=== PATIENT | female | born 1935 | race Caucasian/White ===

== ENCOUNTER 2018-04-15 08:56 | Outpatient (CLI) ==
--- NOTE | 2018-04-15 09:57 | US ---
EXAM: Bilateral carotid artery Doppler History: Dizziness. Comparison: Carotid Doppler 03/30/2014 Technique: Multiple sonographic images through the bilateral internal carotid arteries were obtained . Color duplex Doppler was used to interrogate vascular flow. Findings: The right ICA peak systolic velocity is within normal limits measuring 90 cm/sec. The right ICA/cca PSV ratio is moderately elevated at 2.0. The right vertebral artery is patent and demonstrates antegr sonia flow. There is moderate plaque buildup within the right carotid bulb and proximal right internal carotid artery. The left ICA peak systolic velocity is within normal limits measuring 80 cm/sec. The left ICA/cca PS V ratio is normal at 1.1. The left vertebral artery is patent and demonstrates antegrade flow. Felton scale images demonstrate moderate plaque buildup within the left carotid bulb and proximal left inte rnal carotid artery. Impression: The peak systolic velocities of the bilateral internal carotid arteries indicate no signi ficant hemodynamic stenosis. However, felton scale findings indicate more significant plaque buildup. Recommend clarification with CTA of the neck.
== END 2018-04-15 08:57 | disposition home or self-care (01) ==
LOC: RAD 08:56
PROVIDERS: ATTEND Internal Medicine
DX: R42 Dizziness and giddiness (principal)

== ENCOUNTER 2018-04-22 07:48 | Outpatient (CLI) ==
--- NOTE | 2018-04-22 10:34 | CT ---
EXAM: CTA of the neck with and without contrast History: Carotid stenosis. Comparison: Carotid Doppler 04/15/2018 Technique: Multiplanar CT images through the neck were obtained with and without the administration o f IV contrast. MIP images and 3-D reconstructions were also acquired. Findings: Emphysema seen within the upper lungs. The visualized paranasal sinuses and mastoid air c ells are clear in general. Epiglottis is not thickened. Moderate degenerative disc disease within t he lower cervical spine. Parotid glands and submandibular glands are not inflamed. Orbits are intact . The visualized intracranial contents demonstrate no acute findings. The left vertebral artery is smaller than the right which is most likely a developmental variant. No aneurysms or dissections frederic ntified. The bilateral common carotid arteries are patent without significant disease. There is mod erate atherosclerotic plaque buildup at the left carotid bulb and mild to moderate atherosclerotic pl aque buildup at the right carotid bulb. There is about 50% narrowing of the proximal left internal c arotid artery and 40% narrowing of the proximal right internal carotid artery. Impression: 1. 50% narrowing of the proximal left internal carotid artery with calcific plaque. 2. 40% narrowing of the proximal right internal carotid artery with calcific plaque.
== END 2018-04-22 07:49 | disposition home or self-care (01) ==
LOC: RAD 07:48
PROVIDERS: ATTEND Internal Medicine
DX: I65.23 Occlusion and stenosis of bilateral carotid arteries (principal)
CPT/HCPCS: 36415; 82565

== ENCOUNTER 2020-03-10 06:36 | Inpatient (IN) ==
[2020-03-10] MEDS ORDERED: TYLENOL PO PRN ×3 (07:20→10:33)
[2020-03-10] MEDS ORDERED: VENTOLIN HFA (PER PUFF-WITH SPACER) IH STA (07:20)
[2020-03-10] MEDS ORDERED: SODIUM CHLORIDE 1,000 ML IV ONE (07:24)
[2020-03-10 07:34] LABS: ABG BASE EXCESS -3 (-2.0-2.0); ABG HCO3 20.7 (22.0-26.0); ABG PCO2 26.8 mmHg (35-45); ABG PH 7.495 (7.35-7.45); ABG TCO2 21 (22.0-28.0)
--- NOTE | 2020-03-10 07:49 | ED.PDOC ---
General ED Provider: Dr. LADI WALDEN Stated Complaint: CC: Short of breath HPI: has been ill for a few days and was tested for Covid several days ago along with her 2 sisters whom she lives with. over the past 12 hrs had found it more difficult to breath and feels SOB. Feels cold, but denies fever, chills or sweats. Has a cough productive of yellow sputum. Gets worse at times-currently not coughting Time Seen by Physician: 07:30 Mode of Arrival: Walk-In Information Source: Patient Exam Limitations: Clinical condition Primary Care Provider: ZITA WORLEY Nursing and Triage Documentation Reviewed and Agree: Yes Does patient meet sepsis criteria?: No System Inflammatory Response Syndrome: Not Applicable Sepsis Protocol: For patient's 13 years and over: Temp is 96.8 and below OR 101 and greater Pulse >90 BPM Resp >20/minute Acutely Altered Mental Status Are patient's symptoms suggestive of a new infection, such as: -Pneumonia -Skin, Soft Tissue -Endocarditis -UTI -Bone, Joint Infection -Implantable Device -Acute Abdominal Infection -Wound Infection -Meningitis -Blood Stream Catheter Infection -Unknown Respiratory Complaint Exam Shortness of Air Complaint/Exam Onset/Duration: 1-2 days ago Symptoms Are: Still present Timing: Constant Initial Severity: Mild Current Severity: Mild Character: Reports Dyspnea at rest and Dyspnea on exertion Aggravating: Reports Recumbent position Alleviating: Reports Oxygen and Upright position Associated Signs and Symptoms: Reports Chills and Nasal congestion; Denies Cough, Wheezing, Chest pain with cough, Chest pain, Fever, Diaphoresis, Dizziness, Calf pain, Calf swelling, Edema, Rapid breathing, Labored breathing and Decreased intake Related History: Denies Similar episode, Allergic reaction, Recent trauma and Obesity History of Healthcare-Acquired Pneumonia: No Pulmonary Embolism Risk Factors: Reports None Cardiac Risk Factors: Reports None Pseudomonas Risk Factors: Reports None Tuberculosis Risk Factors: Reports None Home Oxygen Use: No Recent Stress Test: No Recent Echo/LV Function: No Respiratory Distress: None Stridor Present: No Tracheal Deviation: No Subcutaneous Emphysema: No Accessory Muscle Use: No Retractions: Not Present Diminished Breath Sounds: Yes Unable to Speak Full Sentences: No Fatigue: Yes Leg Swelling: No Laz's Sign Present: No Grunting Respirations: No Kussmaul Respirations: No Differential Diagnoses: Pneumonia and SARS Review of Systems Review Of Systems Constitutional: Reports Chills and Loss of appetite Eyes: Reports No symptoms Ears, Nose, Mouth, Throat: Reports No symptoms Respiratory: Reports No symptoms Cardiac: Reports No symptoms GI: Reports Poor appetite : Reports No symptoms Musculoskeletal: Reports No symptoms Skin: Reports No symptoms Neurological: Reports No symptoms Hematologic/Lymphatic: Reports No symptoms All Other Systems: Reviewed and Negative [facility] Medical History (Updated 03/10/20 @ 11:18 by KATERINE ORO, RN) Afib COVID-19 Dementia Diabetes Hypertension Sensorineural hearing loss (SNHL) of both ears Family History (Updated 03/10/20 @ 11:19 by KATERINE ORO, RN) Other Unknown family medical history Social History (Updated 03/10/20 @ 11:19 by KATERINE ORO RN) Smoking and tobacco status: Former smoker Substance use type: does not use Seatbelt use: always Drives intoxicated or rides with intoxicated 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 Physical Exam Physical Exam Appearance: Reports Ill-appearing and Thin Ill-appearing: Mild Pain Distress: None Eyes: Reports VIRIDIANA, EOMI, Conjunctiva clear and Right pupil size (VIRIDIANA-A and EOM-I) ENT: Reports Ears normal and Nose normal Neck: Supple Respiratory: Reports Airway patent, Breath sounds clear and Breath sounds equal Cardiovascular: Reports RRR, Pulses normal and No rub GI/: Reports Soft, Nontender, No masses, Bowel sounds normal and No Organomegaly Musculoskeletal: Reports Normal strength, ROM intact and No edema Skin: Reports Warm, Dry and Normal color Neurological: Reports Sensation intact, Motor intact, Reflexes intact, Cranial nerves intact, Alert and Oriented Psychiatric: Reports Affect appropriate and Mood appropriate Interpretation Radiology Interpretation Radiology Interpretation By: Radiologist Exam Interpreted: Portable CXR Xray Comments: Patchy airspace opacities are seen throughout the lung parenchyma Physician Notification Case Discussed Physician Notified: Dr Worley-Discussed case/leaving town/agrees for hospitalist admission/isDNR Time of Notification: 09:15 Critical Care Note Critical Care Note Total Time (mins): 60 Course Course Hematology/Chemistry: 03/10/20 07:45 03/10/20 07:45 Orders, Labs, Meds: Lab Review 03/10/20 03/10/20 03/10/20 07:19 07:45 07:45 WBC 7.62 RBC 3.75 L Hgb 11.0 L Hct 32.3 L MCV 86.1 MCH 29.3 MCHC 34.1 RDW Coeff of Minda 12.7 Plt Count 196 Immature Gran % (Auto) 0.7 Neut % (Auto) 87.6 H Lymph % (Auto) 8.0 L Becker % (Auto) 3.4 Eos % (Auto) 0.0 Baso % (Auto) 0.3 Neut # (Auto) 6.7 Lymph # (Auto) 0.6 Becker # (Auto) 0.3 L Eos # (Auto) 0.0 Baso # (Auto) 0.0 Immature Gran # (Auto) 0.1 Puncture Site R brachial O2 Saturation 88.0 L ABG pH 7.495 H ABG pCO2 26.8 L ABG pO2 48.0 L* ABG HCO3 20.7 L ABG Total CO2 21 L ABG Base Excess -3 L Amandeep Test + O2 Delivery Device Oxygen Liter Flow FiO2 % 21.0 Sodium 129.3 L Potassium 3.51 Chloride 95.9 L Carbon Dioxide 25.1 Anion Gap 11.81 BUN 19.3 H Creatinine 0.67 Estimated GFR (MDRD) 84.00 BUN/Creatinine Ratio 28.80 Glucose 132.3 H Lactic Acid Calcium 8.90 Magnesium 1.98 Total Bilirubin 0.77 AST 47.6 H ALT 19.1 Alkaline Phosphatase 76.7 Troponin I 0.025 Total Protein 7.22 Albumin 3.77 Globulin 3.45 Albumin/Globulin Ratio 1.09 Procalcitonin 03/10/20 03/10/20 03/10/20 07:45 07:45 09:33 WBC RBC Hgb Hct MCV MCH MCHC RDW Coeff of Minda Plt Count Immature Gran % (Auto) Neut % (Auto) Lymph % (Auto) Becker % (Auto) Eos % (Auto) Baso % (Auto) Neut # (Auto) Lymph # (Auto) Becker # (Auto) Eos # (Auto) Baso # (Auto) Immature Gran # (Auto) Puncture Site R rad O2 Saturation 92.0 L ABG pH 7.445 ABG pCO2 30.7 L ABG pO2 59.0 L* ABG HCO3 21.1 L ABG Total CO2 22 ABG Base Excess -3 L Amandeep Test + O2 Delivery Device Nc Oxygen Liter Flow 2.00 FiO2 % 28.0 Sodium Potassium Chloride Carbon Dioxide Anion Gap BUN Creatinine Estimated GFR (MDRD) BUN/Creatinine Ratio Glucose Lactic Acid 0.82 Calcium Magnesium Total Bilirubin AST ALT Alkaline Phosphatase Troponin I Total Protein Albumin Globulin Albumin/Globulin Ratio Procalcitonin 0.20 Orders Category Date Time Status ABG DRAW REQUEST Stat CARDIO 03/10/20 07:19 Completed ABG DRAW REQUEST Stat CARDIO 03/10/20 09:32 Completed EKG-(ED ONLY) Stat CARDIO 03/10/20 07:19 Completed METERED DOSE INHALATION Routine CARDIO 03/10/20 07:23 Completed OXYGEN Routine CARDIO 03/10/20 07:19 Completed ABG Stat LAB 03/10/20 07:19 Completed ABG Stat LAB 03/10/20 09:33 Completed BLOOD CULTURE (ED ONLY) Stat LAB 03/10/20 07:45 Received CBC W/ AUTO DIFF Stat LAB 03/10/20 07:45 Completed CMP [COMPREHENSIVE METABOLIC PANEL] Stat LAB 03/10/20 07:45 Completed LACTIC ACID Stat LAB 03/10/20 07:45 Completed MAGNESIUM Stat LAB 03/10/20 07:45 Completed PROCALCITONIN Stat LAB 03/10/20 07:45 Completed TROPONIN I Stat LAB 03/10/20 07:45 Completed UA [URINALYSIS C & S IF INDICATED] Stat LAB 03/10/20 07:21 Uncollected Acetaminophen [Tylenol] MEDS 03/10/20 07:20 Discontinued 650 mg PO Q4H PRN Albuterol Inhaler(with Spacer) [Ventolin Hfa (Per Puff- MEDS 03/10/20 07:20 Discontinued with Spacer)] 2 puff IH ONCE STA Dexamethasone 4 mg/ml Inj [Decadron 4 mg/ml Sdv] MEDS 03/10/20 09:06 Discontinued 4 mg IVP ONCE STA Sodium Chloride 0.9% [Sodium Chloride] 1,000 ml MEDS 03/10/20 07:24 Active IV ONCE CHEST, 1V AP ONLY Stat RADS 03/10/20 07:20 Completed Medications Generic Name Dose Route Start Last Admin Trade Name Freq PRN Reason Stop Dose Admin Acetaminophen 650 mg 03/10/20 10:14 Acetaminophen 325 Mg Tablet PO Q4H PRN pain or temp >101 deg Albuterol Sulfate 2 puff 03/10/20 10:33 Albuterol Sulfate (Ventolin Hfa) 18 Gm 1 Puff With Spacer IH Q6H PRN Wheezing Azithromycin 500 mg 03/10/20 13:00 Azithromycin 250 Mg Tablet PO 03/12/20 10:00 DAILY [facility] Bisoprolol Fumarate/HCTZ 0.5 tab 03/11/20 09:00 Bisoprolol Fumarate/Hctz 5/6.25 Mg Tab PO DAILY AMITA Dexamethasone Sodium Phosphate 4 mg 03/11/20 09:00 Dexamethasone Sod Phos 4 Mg/Ml Inj IVP 03/14/20 10:00 DAILY [facility]ITA Donepezil HCl 5 mg 03/11/20 09:00 Donepezil Hcl 10 Mg Tablet PO DAILY [facility] Sodium Chloride 1,000 mls @ 125 mls/hr 03/10/20 07:24 03/10/20 07:53 Sodium Chloride IV 03/10/20 15:23 125 mls/hr ONCE ONE Administration REMDESIVIR (INVESTIGATIONAL) 250 mls @ 125 mls/hr 03/10/20 10:22 200 mg/ Sodium Chloride IV 03/10/20 12:21 ONCE STA Levothyroxine Sodium 75 mcg 03/11/20 06:30 Levothyroxine Sodium 75 Mcg Tablet PO QDAC [facility] Lorazepam 1 mg 03/10/20 10:26 Lorazepam 1 Mg Tablet PO DAILY PRN ANXIETY Memantine 10 mg 03/10/20 17:00 Memantine Hcl 10 Mg Tablet PO QPM [facility] Minoxidil 5 mg 03/10/20 21:00 Minoxidil 2.5 Mg Tablet PO BID [facility] Nifedipine 60 mg 03/11/20 09:00 Nifedipine 30 Mg Tab.Er.24 PO DAILY [facility] Ondansetron HCl 4 mg 03/10/20 10:14 Ondansetron Hcl/Pf 4 Mg/2 Ml Sdv IVP Q6H PRN Nausea / Vomiting Discontinued Medications Generic Name Dose Route Start Last Admin Trade Name Freq PRN Reason Stop Dose Admin Acetaminophen 650 mg 03/10/20 07:20 03/10/20 07:53 Acetaminophen 325 Mg Tablet PO 650 mg Q4H PRN Administration Tenp > 101 deg Albuterol Sulfate 2 puff 03/10/20 07:20 03/10/20 07:51 Albuterol Sulfate (Ventolin Hfa) 18 Gm 1 Puff With Spacer IH 03/10/20 07:21 2 puff ONCE STA Administration Dexamethasone Sodium Phosphate 4 mg 03/10/20 09:06 03/10/20 09:18 Dexamethasone Sod Phos 4 Mg/Ml Inj IVP 09/24/20 09:07 4 mg ONCE STA Administration Vital Signs: Temp Pulse Resp BP Pulse Ox 03/10/20 09:35 92 L 03/10/20 07:19 99.5 F 90 24 149/63 H 82 L Discharge Plan Discharge Patient Disposition: TSF SHORT-TRM HOSP Discharge Problem: Pneumonia due to 2019 novel coronavirus, Acute hyponatremia, Atrial fibrillation, chronic ED Provider: LADI WALDEN Condition: Serious Additional Comments Additional Comments: 0941: Is doing well at present time. After discussion with Dr Worley concurs with Hospitalist admission for treatment. Discussed case with her daughter HERSON advised of treatment plan.
[2020-03-10 08:06] LABS: BASOPHILS % (AUTO) 0.3 % (0.0-3.0); HEMATOCRIT 32.3 % (37.0-47.0); IMMATURE GRANULOCYTE # (AUTO) 0.1 (0.0-1.0); IMMATURE GRANULOCYTE % (AUTO) 0.7 % (0.0-5.0); LYMPHOCYTES # (AUTO) 0.6 K/uL (0.60-3.4); MEAN CORPUSCULAR HEMOGLOBIN 29.3 pg (27.0-31.0); MEAN CORPUSCULAR HGB CONC 34.1 (31.8-35.4); MEAN CORPUSCULAR VOLUME 86.1 fl (81.0-99.0); MONOCYTES # (AUTO) 0.3 K/uL (0.4-2.0); MONOCYTES % (AUTO) 3.4 (0-10); NEUTROPHILS # (AUTO) 6.7 K/ul (2.0-6.9); NEUTROPHILS % (AUTO) 87.6 % (42.2-75.2); PLATELET COUNT 196 10^3/uL (140-440); RDW COEFFICIENT OF VARIATION 12.7 % (11.6-14.8); RED BLOOD COUNT 3.75 10^6/ul (4.20-5.40); WHITE BLOOD COUNT 7.62 K/ul (4.6-10.2)
[2020-03-10 08:07] LABS: ALANINE AMINOTRANSFERASE 19.1 U/L (0-35); ALBUMIN 3.77 g/dL (3.5-5.0); ALKALINE PHOSPHATASE 76.7 U/L (53-141); ASPARTATE AMINO TRANSFERASE 47.6 U/L (14-36); BILIRUBIN,TOTAL 0.77 mg/dL (0.2-1.3); BLOOD UREA NITROGEN 19.3 mg/dL (7-17); CALCIUM 8.9 mg/dL (8.4-10.2); CARBON DIOXIDE 25.1 mmol/L (22-30.0); CHLORIDE 95.9 mmol/L (98-107); CREATININE 0.67 mg/dL (0.60-1.30); GLUCOSE 132.3 mg/dL (74-106); MAGNESIUM 1.98 mg/dL (1.6-2.3); POTASSIUM 3.51 mmol/L (3.5-5.1); SODIUM 129.3 mmol/L (134.5-145); TOTAL PROTEIN 7.22 g/dL (6.3-8.2)
[2020-03-10 08:17] LABS: TROPONIN I 0.025 ng/ml (0.0000-0.120)
--- NOTE | 2020-03-10 08:33 | DI ---
Exam: Single view of the chest. Comparison: None available. Reason for exam: Short of breath. COVID FINDINGS: Patchy airspace opacities are seen throughout the lung parenchyma. There are old healed r ight-sided rib fractures. Cardiac silhouette appears prominent in size. No pneumothorax or effusion . Impression: Diffuse ground-glass opacities can be seen with inflammation, pneumonia, and pulmonary edema. Follow -up imaging is recommended.
[2020-03-10] MEDS ORDERED: DECADRON 4 MG/ML SDV IVP STA (09:06)
[2020-03-10 09:34] LABS: ABG BASE EXCESS -3 (-2.0-2.0); ABG HCO3 21.1 (22.0-26.0); ABG PCO2 30.7 mmHg (35-45); ABG PH 7.445 (7.35-7.45); ABG TCO2 22 (22.0-28.0)
[2020-03-10] MEDS ORDERED: ZOFRAN 4 MG/2 ML IVP PRN (10:14)
[2020-03-10] MEDS ORDERED: [UNRECOGNIZED DRUG - REMARK] IV STA ×2 (10:22→15:48)
[2020-03-10] MEDS ORDERED: ATIVAN PO PRN (10:26)
[2020-03-10] MEDS ORDERED: VENTOLIN HFA (PER PUFF-WITH SPACER) IH PRN (10:33)
[2020-03-10 11:27] VITALS: BMI 22.4
[2020-03-10] MEDS ORDERED: ZITHROMAX PO SCH (13:00)
[2020-03-10] MEDS: NAMENDA PO SCH (16:26)
[2020-03-10 17:00] LABS: BILIRUBIN,URINE Negative (NEGATIVE); CLARITY,URINE Clear (CLEAR); COLOR,URINE Yellow (YELLOW); GLUCOSE, URINE (UA) Trace (NEGATIVE); KETONES,URINE Negative (NEGATIVE); LEUKOCYTE ESTERASE ,URINE Trace (NEGATIVE); NITRITE,URINE Negative (NEGATIVE); PH,URINE 6.5 (5-9); PROTEIN,URINE Trace (NEGATIVE); URINE, BLOOD Trace-intact (NEGATIVE); UROBILINOGEN,URINE 0.2 (0.2)
[2020-03-10] MEDS: ZINC-220 PO SCH (17:03)
[2020-03-10 17:05] LABS: SQUAMOUS EPITHELIAL CELL,UR 0-2 (0-5); URINE RBC, MICROSCOPIC 0-2 (0-2); URINE WBC, MICROSCOPIC 0-2 (0-2)
[2020-03-10] MEDS: ROCEPHIN 1 GM/50 ML D5W 1 GM/50 ML BAG IV SCH (18:46)
[2020-03-10] MEDS: MINOXIDIL PO SCH (20:26)
[2020-03-10] MEDS: PRAVACHOL PO SCH (20:26)
[2020-03-11] MEDS: SYNTHROID PO SCH (05:32)
[2020-03-11] MEDS: TESSALON PERLES PO PRN ×2 (05:33→17:05)
[2020-03-11 06:13] LABS: BASOPHILS % (AUTO) 0.2 % (0.0-3.0); HEMATOCRIT 36.9 % (37.0-47.0); HEMOGLOBIN 12.4 g/dl (12.0-16.0); IMMATURE GRANULOCYTE # (AUTO) 0.1 (0.0-1.0); IMMATURE GRANULOCYTE % (AUTO) 0.7 % (0.0-5.0); LYMPHOCYTES # (AUTO) 1.5 K/uL (0.60-3.4); LYMPHOCYTES % (AUTO) 16.7 (10.0-50.0); MEAN CORPUSCULAR HGB CONC 33.6 (31.8-35.4); MEAN CORPUSCULAR VOLUME 86.2 fl (81.0-99.0); MONOCYTES # (AUTO) 0.4 K/uL (0.4-2.0); MONOCYTES % (AUTO) 5.1 (0-10); NEUTROPHILS # (AUTO) 6.7 K/ul (2.0-6.9); NEUTROPHILS % (AUTO) 77.3 % (42.2-75.2); PLATELET COUNT 287 10^3/uL (140-440); RDW COEFFICIENT OF VARIATION 12.9 % (11.6-14.8); RED BLOOD COUNT 4.28 10^6/ul (4.20-5.40); WHITE BLOOD COUNT 8.67 K/ul (4.6-10.2)
[2020-03-11 06:26] LABS: ALBUMIN 4.09 g/dL (3.5-5.0); ALKALINE PHOSPHATASE 89.4 U/L (53-141); ASPARTATE AMINO TRANSFERASE 48.8 U/L (14-36); BILIRUBIN,TOTAL 0.85 mg/dL (0.2-1.3); BLOOD UREA NITROGEN 14.3 mg/dL (7-17); CALCIUM 9.4 mg/dL (8.4-10.2); CARBON DIOXIDE 26.5 mmol/L (22-30.0); CHLORIDE 100.8 mmol/L (98-107); CREATININE 0.51 mg/dL (0.60-1.30); GLUCOSE 115.5 mg/dL (74-106); POTASSIUM 3.58 mmol/L (3.5-5.1); SODIUM 135.8 mmol/L (134.5-145); TOTAL PROTEIN 8.01 g/dL (6.3-8.2)
[2020-03-11] MEDS: ZIAC 5-6.25 MG PO SCH (08:43)
[2020-03-11] MEDS: DECADRON 4 MG/ML SDV IVP SCH (08:43)
[2020-03-11] MEDS: [UNRECOGNIZED DRUG - REMARK] IV SCH (08:43)
[2020-03-11] MEDS: PROCARDIA XL PO SCH (08:43)
[2020-03-11] MEDS: ARICEPT PO SCH (08:44)
[2020-03-11] MEDS: ZINC-220 PO SCH (08:44)
[2020-03-11] MEDS: MINOXIDIL PO SCH ×2 (08:45→20:52)
[2020-03-11] MEDS ORDERED: DECADRON 4 MG/ML SDV IVP SCH (09:00)
[2020-03-11] MEDS: ROCEPHIN 1 GM/50 ML D5W 1 GM/50 ML BAG IV SCH (10:07)
--- NOTE | 2020-03-11 15:41 | PCM.PROG ---
Objective: Vitals: T=98.9 F, P=63, R=16, IF=843/60, SPO2=94 HEENT: oropharynx moist Neck: supple Lungs: no resp distress, breath sounds bilaterally, diminished bases CVS: 66, irregular Extremities: normal ROM Neurological: mildly demented, no focal deficit Skin: no lesions or breakdowns noted Lab/Tests/Diagnostic Imaging: monitor controlled a fib, short runs of bigeminy noted ASSESSMENT; COVID-19 PNEUMONIA ATRIAL FIBRILLATION, CONTROLLED HYPERTENSION, CONTROLLED, MILD DEMENTIA PLAN: ADD LOVENOX, 60MG SUBCUT Q 12 H, CONTINUE OTHER REGIMENS/MEDS ORDERED.
[2020-03-11] MEDS: NAMENDA PO SCH (17:05)
[2020-03-11] MEDS: PRAVACHOL PO SCH (20:52)
[2020-03-11] MEDS: LOVENOX SUBCUT SCH (20:53)
[2020-03-12] MEDS: TESSALON PERLES PO PRN (01:34)
[2020-03-12 05:09] LABS: BASOPHILS % (AUTO) 0.1 % (0.0-3.0); HEMATOCRIT 39.8 % (37.0-47.0); HEMOGLOBIN 13.3 g/dl (12.0-16.0); IMMATURE GRANULOCYTE # (AUTO) 0.1 (0.0-1.0); IMMATURE GRANULOCYTE % (AUTO) 0.6 % (0.0-5.0); LYMPHOCYTES # (AUTO) 1.5 K/uL (0.60-3.4); LYMPHOCYTES % (AUTO) 15.9 (10.0-50.0); MEAN CORPUSCULAR HGB CONC 33.4 (31.8-35.4); MEAN CORPUSCULAR VOLUME 86.7 fl (81.0-99.0); MONOCYTES # (AUTO) 0.5 K/uL (0.4-2.0); NEUTROPHILS # (AUTO) 7.3 K/ul (2.0-6.9); NEUTROPHILS % (AUTO) 78.4 % (42.2-75.2); PLATELET COUNT 386 10^3/uL (140-440); RDW COEFFICIENT OF VARIATION 13.1 % (11.6-14.8); RED BLOOD COUNT 4.59 10^6/ul (4.20-5.40); WHITE BLOOD COUNT 9.37 K/ul (4.6-10.2)
[2020-03-12 05:22] LABS: ALBUMIN 4.1 g/dL (3.5-5.0); ALKALINE PHOSPHATASE 92.3 U/L (53-141); ASPARTATE AMINO TRANSFERASE 57.2 U/L (14-36); BILIRUBIN,TOTAL 0.62 mg/dL (0.2-1.3); BLOOD UREA NITROGEN 21.4 mg/dL (7-17); CALCIUM 9.51 mg/dL (8.4-10.2); CARBON DIOXIDE 26.2 mmol/L (22-30.0); CHLORIDE 100.6 mmol/L (98-107); CREATININE 0.58 mg/dL (0.60-1.30); GLUCOSE 140.6 mg/dL (74-106); POTASSIUM 3.9 mmol/L (3.5-5.1); SODIUM 135.8 mmol/L (134.5-145); TOTAL PROTEIN 8.01 g/dL (6.3-8.2)
[2020-03-12] MEDS: SYNTHROID PO SCH (05:36)
[2020-03-12] MEDS: ZIAC 5-6.25 MG PO SCH (08:43)
[2020-03-12] MEDS: ZINC-220 PO SCH (08:43)
[2020-03-12] MEDS: LOVENOX SUBCUT SCH ×2 (08:44→20:56)
[2020-03-12] MEDS: DECADRON 4 MG/ML SDV IVP SCH (08:44)
[2020-03-12] MEDS: PROCARDIA XL PO SCH (08:44)
[2020-03-12] MEDS: ARICEPT PO SCH (08:44)
[2020-03-12] MEDS: MINOXIDIL PO SCH ×2 (08:44→20:55)
[2020-03-12] MEDS: [UNRECOGNIZED DRUG - REMARK] IV SCH (08:46)
[2020-03-12] MEDS: ROCEPHIN 1 GM/50 ML D5W 1 GM/50 ML BAG IV SCH (10:15)
[2020-03-12] MEDS: NAMENDA PO SCH (17:21)
--- NOTE | 2020-03-12 18:32 | PCM.PROG ---
Objective: Vitals: T=98 F, P=63, R=18, WY=771/56, SPO2=94 HEENT: []moist oropharynx, no signs infection Neck: [supple, neg nodes] Lungs: [bilateral breath sounds, clear. Not full excursion. CVS: [] Abdomen: [soft, no masses Extremities: [] Neurological: [unable to cooperate Skin: [] Lab/Tests/Diagnostic Imaging: [electrolytes ordered.
[2020-03-12 19:05] LABS: CARBON DIOXIDE 27.7 mmol/L (22-30.0); CHLORIDE 100.4 mmol/L (98-107); POTASSIUM 3.77 mmol/L (3.5-5.1); SODIUM 134.9 mmol/L (134.5-145)
[2020-03-12] MEDS: PRAVACHOL PO SCH (20:55)
[2020-03-13] MEDS: SYNTHROID PO SCH (05:54)
[2020-03-13 06:21] LABS: HEMATOCRIT 36.2 % (37.0-47.0); HEMOGLOBIN 12.1 g/dl (12.0-16.0); MEAN CORPUSCULAR HGB CONC 33.4 (31.8-35.4); MEAN CORPUSCULAR VOLUME 86.8 fl (81.0-99.0); PLATELET COUNT 379 10^3/uL (140-440); RDW COEFFICIENT OF VARIATION 13.2 % (11.6-14.8); RED BLOOD COUNT 4.17 10^6/ul (4.20-5.40); WHITE BLOOD COUNT 11.26 K/ul (4.6-10.2)
[2020-03-13 06:29] LABS: ANISOCYTOSIS NOT PRESENT (NOT PRESENT)
[2020-03-13 06:33] LABS: ALBUMIN 3.66 g/dL (3.5-5.0); ALKALINE PHOSPHATASE 84.8 U/L (53-141); ASPARTATE AMINO TRANSFERASE 52.8 U/L (14-36); BILIRUBIN,TOTAL 0.45 mg/dL (0.2-1.3); BLOOD UREA NITROGEN 20.6 mg/dL (7-17); CALCIUM 8.87 mg/dL (8.4-10.2); CARBON DIOXIDE 26.8 mmol/L (22-30.0); CHLORIDE 102.6 mmol/L (98-107); CREATININE 0.54 mg/dL (0.60-1.30); GLUCOSE 106.1 mg/dL (74-106); POTASSIUM 3.24 mmol/L (3.5-5.1); SODIUM 137.1 mmol/L (134.5-145); TOTAL PROTEIN 7.15 g/dL (6.3-8.2)
[2020-03-13] MEDS: ZINC-220 PO SCH (08:41)
[2020-03-13] MEDS: ZIAC 5-6.25 MG PO SCH (08:41)
[2020-03-13] MEDS: ARICEPT PO SCH (08:41)
[2020-03-13] MEDS: MINOXIDIL PO SCH ×2 (08:41→20:42)
[2020-03-13] MEDS: DECADRON 4 MG/ML SDV IVP SCH (08:42)
[2020-03-13] MEDS: PROCARDIA XL PO SCH (08:42)
[2020-03-13] MEDS: LOVENOX SUBCUT SCH ×2 (08:42→20:35)
[2020-03-13] MEDS: ROCEPHIN 1 GM/50 ML D5W 1 GM/50 ML BAG IV SCH (08:42)
[2020-03-13] MEDS: [UNRECOGNIZED DRUG - REMARK] IV SCH (10:13)
--- NOTE | 2020-03-13 16:28 | PCM.PROG ---
Date Seen by Provider: 03/13/20 Time Seen by Provider: 16:20 Objective: Vitals: T=97.8 F, P=56, R=16, YY=188/47, SPO2=94 HEENT: [] Neck: [] Lungs: [] CVS: [] Abdomen: [] Extremities: [] Neurological: [] Skin: [] Lab/Tests/Diagnostic Imaging: []
--- NOTE | 2020-03-13 17:09 | PCM.PROG ---
Date Seen by Provider: 03/13/20 Time Seen by Provider: 16:35 Subjective: Pt sleeping. arousable. uncooperative during PE. Objective: Vitals: T=97.8 F, P=56, R=16, SM=312/47, SPO2=94 HEENT: moist mucous membranes. (pt not eating according to nurses; only drinking)] Neck: [supple] Lungs: [clear, faint breath sounds.] CVS: [] Abdomen: [nontender, soft.] Extremities: [uncooperative while testing ] Neurological: [] Skin: [] Lab/Tests/Diagnostic Imaging: []
[2020-03-13] MEDS: NAMENDA PO SCH (17:20)
[2020-03-13] MEDS: PRAVACHOL PO SCH (20:42)
[2020-03-14 05:12] LABS: HEMATOCRIT 33.2 % (37.0-47.0); HEMOGLOBIN 11.2 g/dl (12.0-16.0); MEAN CORPUSCULAR HEMOGLOBIN 29.4 pg (27.0-31.0); MEAN CORPUSCULAR HGB CONC 33.7 (31.8-35.4); MEAN CORPUSCULAR VOLUME 87.1 fl (81.0-99.0); PLATELET COUNT 352 10^3/uL (140-440); RED BLOOD COUNT 3.81 10^6/ul (4.20-5.40); WHITE BLOOD COUNT 8.17 K/ul (4.6-10.2)
[2020-03-14 05:21] LABS: ANISOCYTOSIS NOT PRESENT (NOT PRESENT)
[2020-03-14 05:25] LABS: ALANINE AMINOTRANSFERASE 42.6 U/L (0-35); ALBUMIN 3.24 g/dL (3.5-5.0); ALKALINE PHOSPHATASE 80.8 U/L (53-141); ASPARTATE AMINO TRANSFERASE 82.7 U/L (14-36); BILIRUBIN,TOTAL 0.44 mg/dL (0.2-1.3); BLOOD UREA NITROGEN 16.2 mg/dL (7-17); CALCIUM 8.46 mg/dL (8.4-10.2); CARBON DIOXIDE 28.6 mmol/L (22-30.0); CHLORIDE 103.2 mmol/L (98-107); CREATININE 0.51 mg/dL (0.60-1.30); GLUCOSE 95.3 mg/dL (74-106); POTASSIUM 3.12 mmol/L (3.5-5.1); SODIUM 137.1 mmol/L (134.5-145); TOTAL PROTEIN 6.6 g/dL (6.3-8.2)
[2020-03-14] MEDS: SYNTHROID PO SCH (05:47)
[2020-03-14] MEDS ORDERED: DEXTROSE 5%-WATER IV SOLN 1,000 ML IV STA (07:52)
[2020-03-14] MEDS ORDERED: POTASSIUM CHLORIDE 10 MEQ/100 ML PREMIX 10 MEQ/100 ML BAG IV STA (07:53)
--- NOTE | 2020-03-14 08:57 | DI ---
EXAM: Chest one view, frontal view only. HISTORY: Shortness of breath. COMPARISON: 03/10/2020. FINDINGS: Heart is enlarged. Atherosclerotic calcifications are present. Mid to lower lung consoli dation again noted bilaterally. No new opacities are seen. There is no pleural effusion or pneumoth orax. No overt vascular congestion identified. No acute osseous abnormalities seen. IMPRESSION: Stable bilateral consolidation which and is most suggestive of pneumonia.
[2020-03-14] MEDS: ZIAC 5-6.25 MG PO SCH (09:19)
[2020-03-14] MEDS ORDERED: DEXTROSE 5%-WATER IV SOLN 500 ML IV STA (09:54)
[2020-03-14] MEDS: DECADRON 4 MG/ML SDV IVP SCH (10:12)
[2020-03-14] MEDS: MINOXIDIL PO SCH ×2 (10:14→20:57)
[2020-03-14] MEDS: ARICEPT PO SCH (10:14)
[2020-03-14] MEDS: PROCARDIA XL PO SCH (10:14)
[2020-03-14] MEDS: ZINC-220 PO SCH (10:15)
[2020-03-14] MEDS: LOVENOX SUBCUT SCH ×2 (10:16→20:56)
[2020-03-14 10:27] LABS: ABG BASE EXCESS 2 (-2.0-2.0); ABG HCO3 25.4 (22.0-26.0); ABG PCO2 33.1 mmHg (35-45); ABG PH 7.492 (7.35-7.45); ABG TCO2 26 (22.0-28.0)
[2020-03-14] MEDS: VITAMIN D PO SCH (12:01)
[2020-03-14] MEDS: ZITHROMAX 500 MG in SODIUM CHLORIDE 250 ML IV SCH (12:19)
[2020-03-14] MEDS: NAMENDA PO SCH (17:00)
[2020-03-14 17:15] LABS: CREATINE KINASE 36.5 U/L (30-135)
[2020-03-14 17:38] LABS: TROPONIN I < 0.012 ng/ml (0.0000-0.120)
[2020-03-15] MEDS: SYNTHROID PO SCH (05:34)
[2020-03-15 05:43] LABS: BASOPHILS % (AUTO) 0.2 % (0.0-3.0); EOSINOPHILS % (AUTO) 0.2 % (0.0-7.0); HEMATOCRIT 32.9 % (37.0-47.0); HEMOGLOBIN 10.9 g/dl (12.0-16.0); IMMATURE GRANULOCYTE # (AUTO) 0.2 (0.0-1.0); LYMPHOCYTES # (AUTO) 1.3 K/uL (0.60-3.4); LYMPHOCYTES % (AUTO) 20.8 (10.0-50.0); MEAN CORPUSCULAR HGB CONC 33.1 (31.8-35.4); MEAN CORPUSCULAR VOLUME 87.5 fl (81.0-99.0); MONOCYTES # (AUTO) 0.3 K/uL (0.4-2.0); MONOCYTES % (AUTO) 4.8 (0-10); NEUTROPHILS # (AUTO) 4.3 K/ul (2.0-6.9); PLATELET COUNT 361 10^3/uL (140-440); RDW COEFFICIENT OF VARIATION 12.8 % (11.6-14.8); RED BLOOD COUNT 3.76 10^6/ul (4.20-5.40); WHITE BLOOD COUNT 6.02 K/ul (4.6-10.2)
[2020-03-15 05:57] LABS: ALANINE AMINOTRANSFERASE 50.4 U/L (0-35); ALBUMIN 3.07 g/dL (3.5-5.0); ALKALINE PHOSPHATASE 73.1 U/L (53-141); ASPARTATE AMINO TRANSFERASE 75.9 U/L (14-36); BILIRUBIN,TOTAL 0.42 mg/dL (0.2-1.3); BLOOD UREA NITROGEN 14.3 mg/dL (7-17); CALCIUM 8.66 mg/dL (8.4-10.2); CARBON DIOXIDE 30.3 mmol/L (22-30.0); CHLORIDE 102.9 mmol/L (98-107); CREATININE 0.54 mg/dL (0.60-1.30); GLUCOSE 102.2 mg/dL (74-106); POTASSIUM 3.51 mmol/L (3.5-5.1); SODIUM 135.9 mmol/L (134.5-145); TOTAL PROTEIN 6.47 g/dL (6.3-8.2)
[2020-03-15] MEDS: ZITHROMAX 500 MG in SODIUM CHLORIDE 250 ML IV SCH (09:14)
[2020-03-15] MEDS: PROCARDIA XL PO SCH (09:15)
[2020-03-15] MEDS: VITAMIN D PO SCH (09:15)
[2020-03-15] MEDS: MINOXIDIL PO SCH ×2 (09:15→21:12)
[2020-03-15] MEDS: ZINC-220 PO SCH (09:17)
[2020-03-15] MEDS: ARICEPT PO SCH (09:18)
[2020-03-15] MEDS: DECADRON 4 MG/ML SDV IVP SCH (09:19)
[2020-03-15] MEDS: LOVENOX SUBCUT SCH ×2 (09:19→21:13)
[2020-03-15] MEDS: SYMBICORT 160-4.5 MCG INHALER IH SCH ×2 (15:00→21:12)
[2020-03-15] MEDS ORDERED: GLYCERIN SUPPOSITORY RC PRN (15:42)
[2020-03-15] MEDS: NAMENDA PO SCH (17:33)
[2020-03-16 05:24] LABS: BASOPHILS % (AUTO) 0.2 % (0.0-3.0); EOSINOPHILS % (AUTO) 0.2 % (0.0-7.0); HEMATOCRIT 32.6 % (37.0-47.0); HEMOGLOBIN 10.8 g/dl (12.0-16.0); IMMATURE GRANULOCYTE # (AUTO) 0.3 (0.0-1.0); IMMATURE GRANULOCYTE % (AUTO) 3.2 % (0.0-5.0); LYMPHOCYTES # (AUTO) 1.5 K/uL (0.60-3.4); LYMPHOCYTES % (AUTO) 18.5 (10.0-50.0); MEAN CORPUSCULAR HEMOGLOBIN 29.1 pg (27.0-31.0); MEAN CORPUSCULAR HGB CONC 33.1 (31.8-35.4); MEAN CORPUSCULAR VOLUME 87.9 fl (81.0-99.0); MONOCYTES # (AUTO) 0.5 K/uL (0.4-2.0); MONOCYTES % (AUTO) 6.1 (0-10); NEUTROPHILS # (AUTO) 5.9 K/ul (2.0-6.9); NEUTROPHILS % (AUTO) 71.8 % (42.2-75.2); PLATELET COUNT 389 10^3/uL (140-440); RDW COEFFICIENT OF VARIATION 12.8 % (11.6-14.8); RED BLOOD COUNT 3.71 10^6/ul (4.20-5.40); WHITE BLOOD COUNT 8.21 K/ul (4.6-10.2)
[2020-03-16 05:35] LABS: ALANINE AMINOTRANSFERASE 62.9 U/L (0-35); ALBUMIN 3.32 g/dL (3.5-5.0); ASPARTATE AMINO TRANSFERASE 85.7 U/L (14-36); BILIRUBIN,TOTAL 0.44 mg/dL (0.2-1.3); BLOOD UREA NITROGEN 15.1 mg/dL (7-17); CALCIUM 8.67 mg/dL (8.4-10.2); CARBON DIOXIDE 29.8 mmol/L (22-30.0); CHLORIDE 102.3 mmol/L (98-107); CREATINE KINASE 24.8 U/L (30-135); CREATININE 0.54 mg/dL (0.60-1.30); GLUCOSE 100.4 mg/dL (74-106); POTASSIUM 3.33 mmol/L (3.5-5.1); SODIUM 135.8 mmol/L (134.5-145); TOTAL PROTEIN 6.55 g/dL (6.3-8.2)
[2020-03-16] MEDS: SYNTHROID PO SCH (05:37)
[2020-03-16 05:59] LABS: TROPONIN I < 0.012 ng/ml (0.0000-0.120)
[2020-03-16] MEDS: DECADRON 4 MG/ML SDV IVP SCH (08:30)
[2020-03-16] MEDS: VITAMIN D PO SCH (08:56)
[2020-03-16] MEDS: ZINC-220 PO SCH (08:56)
[2020-03-16] MEDS: MINOXIDIL PO SCH ×2 (08:57→20:55)
[2020-03-16] MEDS: PROCARDIA XL PO SCH (08:57)
[2020-03-16] MEDS: ARICEPT PO SCH (08:57)
[2020-03-16] MEDS: ZITHROMAX 500 MG in SODIUM CHLORIDE 250 ML IV SCH (08:58)
[2020-03-16] MEDS: SYMBICORT 160-4.5 MCG INHALER IH SCH ×2 (08:58→21:12)
[2020-03-16] MEDS: LOVENOX SUBCUT SCH ×2 (09:08→20:55)
--- NOTE | 2020-03-16 11:35 | CONS ---
DATE OF CONSULTATION: HISTORY OF PRESENT ILLNESS: 85-year-old white female hospitalized on 03/10/20 with Covid pneumonia, hypoxemia. The patient's new problem is cardiac arrhythmia for which I have been consulted along with general management. The patient was seen and examined. Daughter, Litzy, was present in the room. The patient says she is getting more strength. The patient is DNR. REVIEW OF SYSTEMS: CONSTITUTIONAL: Weakness and fatigue. No night sweats. No malaise, lethargy. No fever or chills. HEENT: Eyes: No visual changes. No eye pain. No eye discharge. ENT: No sinus drainage. No epistaxis. No sinus pain. No sore throat. No odynophagia. No ear pain. No congestion. RESPIRATORY: Cough and congestion, at times brownish sputum. No sylvie hemoptysis. Shortness of breath on exertion. CARDIOVASCULAR: No angina symptoms. No CHF symptoms. No atypical chest pain for CAD. No palpitations. No PND, no orthopnea. GASTROINTESTINAL: Appetite improving some. Today she is going to eat a hamburger. Sense of semll still lacking. No abdominal pain. No nausea or vomiting. No diarrhea or constipation. No hematemesis. No hematochezia. GENITOURINARY: No urgency. No frequency. No dysuria. No hematuria. No obstructive symptoms. No discharge. No pain. No significant abnormal bleeding. MUSCULOSKELETAL: Generalized aches and pains that are much better. Particular no aches or pains at the present time. 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 No headache. No neck pain. No syncope. No seizures. No dizziness. PSYCHIATRIC: Not anxious. No depression. No suicidal thoughts. No homicidal thoughts. SKIN: No rash. No lesions. No wounds. ENDOCRINE: No unexplained weight loss. No weight gain. HEMATOLOGIC/LYMPHATIC: No anemia. No purpura. No petechiae. No prolonged or excessive bleeding. No palpable lymph nodes. MEDICATIONS: Albuterol Dexamethasone Aricept Lovenox Azithromycin Levothyroxine Lorazepam Namenda Minoxidil Nifedipine Pravastatin - of note Pravastatin has been taken off Zinc Sulfate ALLERGIES: NKDA PAST MEDICAL/SURGICAL HISTORY: The patient has history of dementia Hypertension Chronic anemia Hypothyroidism Generalized osteoarthritis SOCIAL/PERSONAL/FAMILY HISTORY: The patient is , lives with daughter. Nonsmoker. No alcohol abuse. She was doing all activity of daily living. She has had mild dementia for a few years, was on Namenda and Aricept. PHYSICAL EXAMINATION: VITAL SIGNS: Temperature 99.4, pulse 54, respiratory rate 18, BP 138/50, pulse ox 94%, 1 to 2L. HEENT: Looks somewhat pale but color has improved according to the nursing staff. Face is symmetrical. Head normocephalic, atraumatic. Eyes: Extraocular muscles are intact. Pupils are equal, round and reactive to light and accommodation. Ears: No lesions. Nose appeared normal. Throat: No exudate or erythema. NECK: Supple. No JVD, no carotid bruit. No lymphadenopathy or thyromegaly. LUNGS: Decreased breath sounds, few crepitations but good air entry. Percussion note normal. Chest symmetrical. HEART: PMI not palpalpable on auscultation. S1, S2, no S3. No murmurs. No cyanosis or clubbing. No ascites. Pulses: Dorsalis pedis and posterior tibial pulses +1 bilaterally. ABDOMEN: Soft. Nontender. Bowel sounds active. No CVA tenderness. No mass felt. EXTREMITIES: No pitting edema. Full range of motion of all extremities, equal. 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 No focal deficit. Cranial nerves II through XII are grossly intact. No headache, no double vision or headache. SKIN: Warm and dry. Intact. Turgor - normal. No rash noted. LYMPHATIC: No palpable lymph nodes/no lymphedema. MUSCULOSKELETAL: Normal joints with no swelling. Muscle tone is normal. LABS: Hemoglobin 10.9, hematocrit 32, WBC 6,000, normal differential. Creatinine 0.5, BUN 14, potassium 3.5. T4, TSH within normal range. GFR 108 cc/min. The patient's CRP was done which is elevated. Ferritin level has slightly decreased from admission one. Troponin was negative today. The patient's rhythm strips examined which showed atrial fibrillation, intermittent with sinus rhythm, kiarra rhythm. At times the patient has idioventricular junctional rhythm with rate of 35 to 40/min. It is to be noted that the patient maintained her blood pressure with this rhythm, was intermittent considering the whole 24 hours, it was brief. ASSESSMENT: 1. COVID pneumonia seems to be clinically improving. Arterial blood gases done yesterday showed p02 of 72 with normal pc02 and pH with saturation of 95% which is quite an improvement from admission. 2. Atrial fibrillation, new onset. The patient is on Lovenox 50 b.i.d. Intermittent sinus rhythm with atrial fibrillation with escape idioventricular rhythm frequently with normal blood pressure. 3. Hypertension. 4. Dementia, mild. 5. Dyslipidemia. 6. Chronic anemia. 7. Hypothyroidism. RECOMMENDATIONS: 1. Continue Albuterol inhaler as needed. 2. Add Symbicort two puffs daily. 3. Dexamethasone, continue. 4. Continue Namenda. 5. Continue Levothyroxine. 6. Continue Azithromycin 500 mg p.o. daily. 7. Remdesivir was given initially and later on the patient was taken off as her condition deteriorated with some abnormality in the liver function. 8. Pravachol was also discontinued. 9. Zinc Sulfate to be continued 220 mg. 10. Zofran p.r.n. as needed. 11. Continue Nifedipine and Minoxidil. 12. Discontinue Ziac which is a beta nancy with diuretic with the patient's bradyarrhythmias. 13. The patient is encouraged to eat. The patient's daughter, Litzy, and the patient both explained about the patient's condition which seems to be improving some clinically. Condition is stable for now with no evidence of CHF or myocardial infarction. The patient has cardiac arrhythmias which doesn't seem to be affecting her status for now with normal kidney function and blood pressure. Will continue to monitor with Telemetry, CBC and CMP. CONDITION: Stable. PROGNOSIS: Guarded. TIME SPENT: More than 60 minutes. MTDD
[2020-03-16] MEDS: NAMENDA PO SCH (17:10)
[2020-03-16] MEDS: K-DUR PO SCH (22:08)
[2020-03-17 04:10] LABS: CARDIAC C-REACTIVE PROTEIN 8.82 mg/L (0.00-3.00)
[2020-03-17 05:12] LABS: ABG BASE EXCESS 3 (-2.0-2.0); ABG HCO3 26.1 (22.0-26.0); ABG PCO2 35.1 mmHg (35-45); ABG PH 7.478 (7.35-7.45); ABG TCO2 27 (22.0-28.0)
[2020-03-17] MEDS: SYNTHROID PO SCH (05:38)
[2020-03-17 05:44] LABS: BASOPHILS % (AUTO) 0.3 % (0.0-3.0); EOSINOPHILS % (AUTO) 0.5 % (0.0-7.0); HEMATOCRIT 31.3 % (37.0-47.0); HEMOGLOBIN 10.2 g/dl (12.0-16.0); IMMATURE GRANULOCYTE # (AUTO) 0.3 (0.0-1.0); IMMATURE GRANULOCYTE % (AUTO) 4.2 % (0.0-5.0); LYMPHOCYTES # (AUTO) 1.8 K/uL (0.60-3.4); LYMPHOCYTES % (AUTO) 24.7 (10.0-50.0); MEAN CORPUSCULAR HEMOGLOBIN 28.7 pg (27.0-31.0); MEAN CORPUSCULAR HGB CONC 32.6 (31.8-35.4); MEAN CORPUSCULAR VOLUME 88.2 fl (81.0-99.0); MONOCYTES # (AUTO) 0.5 K/uL (0.4-2.0); MONOCYTES % (AUTO) 7.1 (0-10); NEUTROPHILS # (AUTO) 4.6 K/ul (2.0-6.9); NEUTROPHILS % (AUTO) 63.2 % (42.2-75.2); PLATELET COUNT 371 10^3/uL (140-440); RDW COEFFICIENT OF VARIATION 13.1 % (11.6-14.8); RED BLOOD COUNT 3.55 10^6/ul (4.20-5.40); WHITE BLOOD COUNT 7.34 K/ul (4.6-10.2)
[2020-03-17 05:50] VITALS: BP 140/51; TEMP 97.8
[2020-03-17 05:52] LABS: ALANINE AMINOTRANSFERASE 76.2 U/L (0-35); ALBUMIN 3.09 g/dL (3.5-5.0); ALKALINE PHOSPHATASE 68.8 U/L (53-141); ASPARTATE AMINO TRANSFERASE 91.7 U/L (14-36); BILIRUBIN,TOTAL 0.36 mg/dL (0.2-1.3); BLOOD UREA NITROGEN 14.7 mg/dL (7-17); CALCIUM 8.55 mg/dL (8.4-10.2); CHLORIDE 105.8 mmol/L (98-107); CREATININE 0.56 mg/dL (0.60-1.30); GLUCOSE 84.2 mg/dL (74-106); POTASSIUM 3.97 mmol/L (3.5-5.1); SODIUM 136.3 mmol/L (134.5-145); TOTAL PROTEIN 6.21 g/dL (6.3-8.2)
[2020-03-17 05:59] LABS: CREATINE KINASE < 20.0 U/L (30-135)
[2020-03-17 06:28] LABS: TROPONIN I < 0.012 ng/ml (0.0000-0.120)
[2020-03-17] MEDS: ARICEPT PO SCH (09:11)
[2020-03-17] MEDS: VITAMIN D PO SCH (09:11)
[2020-03-17] MEDS: ZINC-220 PO SCH (09:12)
[2020-03-17] MEDS: PROCARDIA XL PO SCH (09:12)
[2020-03-17] MEDS: MINOXIDIL PO SCH (09:12)
[2020-03-17] MEDS: K-DUR PO SCH (09:12)
[2020-03-17] MEDS: LOVENOX SUBCUT SCH (09:12)
[2020-03-17] MEDS: ZITHROMAX 500 MG in SODIUM CHLORIDE 250 ML IV SCH (09:13)
[2020-03-17] MEDS: DECADRON 4 MG/ML SDV IVP SCH (09:13)
[2020-03-17] MEDS: SYMBICORT 160-4.5 MCG INHALER IH SCH (09:28)
--- NOTE | 2020-03-17 11:48 | CM.DICTOOL ---
ADMISSION: 03/10/20 10:13 FINAL DIAGNOSIS COVID - 19 PNEUMONIA- IMPROVING A-FIB- NEW ONSET- CONTROLLED HYPERTENSION DEMENTIA, MILD DYSLIPIDEMIA CHRONIC ANEMIA HYPOTHYROIDISM HYPONATREMIA- RESOLVED HYPOKALEMIA- RESOLVED ABNORMAL LIVER PROFILE HX: DEMENTIA EARLY- MMSE 05/05 DYSLIPIDEMIA HYPERTENSION/LVH HYPOTHYROIDISM HYPERGLYCEMIA SYSTOLIC MURMUR CHRONIC ANEMIA CAROTID STENOSIS CONTACT DERMATITIS GENERALIZED OSTEOARTHRITIS LAST VITALS Temp Pulse Resp BP Pulse Ox 97.8 F 78 16 140/51 L 94 L 03/17/20 05:50 03/17/20 05:50 03/17/20 05:50 03/17/20 05:50 03/17/20 09:56 TAKE THESE MEDICATIONS AT HOME Budesonide/Formoterol Fumarate (Budesonide/Formoterol Fumarate 160/4.5 Mcg Inhaler) 2 puff IH BID [facility] Last Admin: 03/17/20 09:28 Dose: 2 puff Documented by: Cholecalciferol (Cholecalciferol (Vitamin D3) 1,000 Unit Tablet) 5,000 unit PO DAILY [facility] Last Admin: 03/17/20 09:11 Dose: 5,000 unit Documented by: Donepezil HCl (Donepezil Hcl 10 Mg Tablet) 5 mg PO DAILY [facility] Last Admin: 03/17/20 09:11 Dose: 5 mg Documented by: Glycerin (Glycerin 1 Each Supp.Rect) 1 each RC DAILY PRN PRN Reason: Constipation Last Admin: 03/15/20 17:34 Dose: 1 each Documented by: Levothyroxine Sodium (Levothyroxine Sodium 75 Mcg Tablet) 75 mcg PO QDAC [facility] Last Admin: 03/17/20 05:38 Dose: 75 mcg Documented by: Lorazepam (Lorazepam 1 Mg Tablet) 1 mg PO DAILY PRN PRN Reason: ANXIETY Memantine (Memantine Hcl 10 Mg Tablet) 10 mg PO QPM [facility] Last Admin: 03/16/20 17:10 Dose: 10 mg Documented by: Minoxidil (Minoxidil 2.5 Mg Tablet) 5 mg PO BID [facility] Last Admin: 03/17/20 09:12 Dose: 5 mg Documented by: Nifedipine (Nifedipine 30 Mg Tab.Er.24) 60 mg PO DAILY [facility] Last Admin: 03/17/20 09:12 Dose: 60 mg Documented by: Zinc Sulfate (Zinc Sulfate 220 Mg Capsule) 220 mg PO DAILY [facility] Last Admin: 03/17/20 09:12 Dose: 220 mg Documented by: PEPCID 20 MG PO BID KEFLEX 500 MG PO BID X 5 DAYS, START 03/18/2020 PREDNISONE 20 MG PO DAILY X 5 DAYS, START 03/18/2020 ALLERGIES No Known Allergies Allergy (Verified 03/10/20 07:26) DISCONTINUED MEDICATIONS Ziac Pravastatin NEW PRESCRIPTIONS: PEPCID 20 MG PO BID SYMBICORT MDI 2 PUFFS IN THE AM KEFLEX 500 MG PO BID X 5 DAYS, START 03/18/2020 PREDNISONE 20 MG PO DAILY X 5 DAYS, START 03/18/2020 VITAMIN D3 5000 UNITS DAILY X 15 DAYS, START 03/18/2020 GYCERIN SUPPOSITORY ONE RECTALLY DAILY PRN ZINC 220 PO DAILY , STRAT 03/18/2020 SMOKING: NON- APPLICABLE DISEASE SPECIFIC EDUCATION: COVID PNEUMONIA COVID PRECAUTIONS ELIQUIS SYMBICORT MDI KEFLEX PREDNISONE LAB REVIEW: 03/17/20 05:30 03/17/20 05:30 03/17/20 05:30: WBC 7.34, RBC 3.55 L, Hgb 10.2 L, Hct 31.3 L, MCV 88.2, MCH 28.7, MCHC 32.6, RDW Coeff of Minda 13.1, Plt Count 371, Immature Gran % (Auto) 4.2, Neut % (Auto) 63.2, Lymph % (Auto) 24.7, Butts % (Auto) 7.1, Eos % (Auto) 0.5, Baso % (Auto) 0.3, Neut # (Auto) 4.6, Lymph # (Auto) 1.8, Butts # (Auto) 0.5, Eos # (Auto) 0.0, Baso # (Auto) 0.0, Immature Gran # (Auto) 0.3 03/17/20 05:30: Sodium 136.3, Potassium 3.97, Chloride 105.8, Carbon Dioxide 30.0, Anion Gap 4.47, BUN 14.7, Creatinine 0.56 L, Estimated GFR (MDRD) 103.00, BUN/Creatinine Ratio 26.25, Glucose 84.2, Calcium 8.55, Ferritin 830.00 H, Total Bilirubin 0.36, AST 91.7 H, ALT 76.2 H, Alkaline Phosphatase 68.8, Total Creatine Kinase < 20.0 L, Troponin I < 0.012, Total Protein 6.21 L, Albumin 3.09 L, Globulin 3.12, Albumin/Globulin Ratio 0.99 03/17/20 05:00: Puncture Site Lbrach, O2 Saturation 93.0 L, ABG pH 7.478 H, ABG pCO2 35.1, ABG pO2 61.0 L, ABG HCO3 26.1 H, ABG Total CO2 27, ABG Base Excess 3 H, Amandeep Test +, FiO2 % 21.0 03/16/20 05:15: Lactate Dehydrogenase 324 H, C-React Prot High Sens 8.82 H PLAN: DISCHARGE HOME: TODAY , MARCH 17/2020 WITH COVID - 19 PRECAUTIONS LIVES WITH TWO SISTERS ACTIVITY: UP TOLERATED WITH SUPERVISION. GET UP AND WALK IN HOME THROUGHOUT THE DAY FREQUENT REST PERIODS STAY HOME UNTIL MD APPOINTMENT YOU ARE STILL CONSIDERED COVID- 19 CONTAGIOUS THROUGH 03/20/2020, PLEASE RECOGNIZE PROPER PRECAUTIONS ACORDING TO INSTRUCTIONS PROVIDED DIET: REGULAR WITH ENSURE 240 ML TWICE DAILY, PREFERABLY BETWEEN MEALS MD FOLLOW UP: SEE DR. WORLEY/JOSE ELIAS MALDONADO APRN/ADAM ANSARI APRN IN THE OFFICE ON MARCH 28, 2020 @ 0900 HOME OXYGEN @ 2 L/M PER N/C CONTINUOS PROVIDED PER [facility] # [phone] CODE STATUS: DO NOT RESUSCITATE MRS BO IS ALERT AND ORIENTED TO SELF AND SCATTERED DETAILS, AND HAS IMPROVED. SHE IS FORGETFUL. SHE IS ABLE TO GET UP ON OWN WITH SUPERVISION. LUNGS ARE DIMINISHED AND CONTINUES TO HAVE SCANT, INTERMITTENT KIM SPUTUM WITH RED SPECKS. USING 2 L/M PER N/C OF OXYGEN. SHE IS SOA WITH EXERTION AND DID QUALIFY FOR HOME O2. SLIGHT NON- PITTING EDEMA TO LEGS. TELEMETRY HAS IMPROVED, NO LONGER BRADYCARDIA. STILL SHOWS A-FIB WITH PVCS. APPETITE HAS BEEN POOR TO NONE AND NOW SHE IS EATING 50% WITH FAMILY PROVIDED ITEMS. SKIN WARM AND DRY AND INTACT. CONTINUE ENSURE BID AT HOME. SHE IS CONTINENT OF BOWEL AND BLADDER. LAST BM 03/15/2020. SHE AND HER DTR WANTS TO DISCHARGE HOME WHERE SHE RESIDED WITH TWO SISTERS. HERSON, DTR STATED THEY ARE ALSO POSITIVE FOR COVID-19, BUT ARE WELL ENOUGH AND CAPABLE TO CARE FOR HER. MD JOSE ELIAS CUELLAR APRN ALYCE HANNAN, APRN
[2020-03-18 07:52] LABS: C-REACTIVE PROTEIN 4 mg/L (0-10)
--- NOTE | 2020-03-18 08:24 | PN ---
DATE OF SERVICE: 03/16/20 SUBJECTIVE: 85-year-old white female has Covid. The patient's condition has improved remarkably. This morning she looked better than ever before. She is begging to go home. Daughter also wants her to go home. The patient's both sisters, that she is living with, have Covid also. The patient seems to be oriented to place and person. REVIEW OF SYSTEMS: CONSTITUTIONAL: No night sweats. No fatigue, malaise, lethargy. No fever or chills. HEENT: Eyes: No visual changes. No eye pain. No eye discharge. ENT: No runny nose. No epistaxis. No sinus pain. No sore throat. No odynophagia. No congestion. RESPIRATORY: No cough, no congestion. No hemoptysis. No shortness of breath. CARDIOVASCULAR: No angina symptoms. No CHF symptoms. No atypical chest pain for CAD. No palpitations. No PND. No orthopnea. GASTROINTESTINAL: Appetite seems to be improving. No abdominal pain. No nausea or vomiting. No diarrhea or constipation. No hematemesis. No hematochezia. GENITOURINARY: No urgency. No frequency. No dysuria. No hematuria. No obstructive symptoms. No discharge. No pain. No significant abnormal bleeding. MUSCULOSKELETAL: No musculoskeletal pain; no joint swelling. NEUROLOGICAL: No headache. No neck pain. No syncope. No seizures. No dizziness. PSYCHIATRIC: Not anxious. No depression. No suicidal thoughts. No homicidal thoughts. SKIN: No rash. No lesions. No wounds. ENDOCRINE: No unexplained weight loss. No weight gain. HEMATOLOGIC/LYMPHATIC: No anemia. No purpura. No petechiae. No prolonged or excessive bleeding. No palpable lymph nodes. PHYSICAL EXAMINATION: VITAL SIGNS: Temperature 98.3, pulse 55, respiratory rate 18, blood pressure 130/56, pulse ox 97% on 2L on room air. The patient's oxygen saturation is 92 to 91%. HEENT: Head normocephalic, atraumatic. Eyes: Extraocular muscles are intact. Pupils are equal, round and reactive to light and accommodation. Ears: No lesions. Nose appeared normal. Throat: No exudate or erythema. NECK: Supple. No JVD, no carotid bruit. No lymphadenopathy or thyromegaly. LUNGS: Decreased breath sounds. Good air entry. Extremely faint wheeze, mild expiratory. Percussion note normal. Chest symmetrical. HEART: S1, S2, no S3. No murmurs. No cyanosis or clubbing. No ascites. Pulses: Dorsalis pedis and posterior tibial pulses +1 to +2 bilaterally. ABDOMEN: Soft. Nontender. Bowel sounds active. No CVA tenderness. No mass felt. EXTREMITIES: No edema. Full range of motion of all extremities, equal. NEUROLOGIC: No focal deficit. Cranial nerves II through XII are grossly intact. No headache, no double vision or headache. SKIN: Not dry. Intact. Turgor - normal. LYMPHATIC: No palpable lymph nodes/no lymphedema. MUSCULOSKELETAL: Normal joints with no swelling. Muscle tone is normal. LABS: Hemoglobin 10.8, hematocrit 32, WBC 8,200, normal differential. Creatinine 0.5, BUN 15, potassium 3.3. ASSESSMENT: 1. COVID pneumonia seems to be clinically resolving. 2. Cardiac arrhythmia seems to be mostly in sinus rhythm. 3. Hypokalemia. 4. Chronic anemia. 5. Dementia which seems to be stable. PLAN: 1. Continue all antihypertensive medications, beta nancy. 2. Continue antibiotics, IV. 3. Continue Symbicort p.r.n. 4. Continue Zinc. 5. Potassium supplements will be given. The patient's condition has improved remarkably. She doesn't have fever or chills. Appetite has improved. Respiratory status has improved. The patient has good family support. The daughter is practically staying with her for the past 72 hours. Besides that both sisters are Covid positive and they are doing well at home and is going to go back there. They are younger than her. They are good cooks so probably she will be able to eat and rest. Will likely discharge tomorrow. The patient has oximetry at home. Explained about if the oxygen saturation drops below 89% to come to the emergency room. The patient will qualifly for oxygen at home. TIME SPENT: More than 30 minutes. Plan and coordination of the patient's care discussed in the presence of nurse. NILSON
--- NOTE | 2020-03-18 09:37 | DS ---
DATE OF SERVICE: 03/17/20 FINAL DIAGNOSIS: 1. COVID - 19 PNEUMONIA- IMPROVING 2. A-FIB- NEW ONSET- CONTROLLED 3. HYPERTENSION 4. DEMENTIA, MILD 5. DYSLIPIDEMIA 6. CHRONIC ANEMIA 7. HYPOTHYROIDISM 8. HYPONATREMIA- RESOLVED 9. HYPOKALEMIA- RESOLVED 10. ABNORMAL LIVER PROFILE HX: 11. DEMENTIA EARLY- MMSE 26/30 05/05 12. DYSLIPIDEMIA 13. HYPERTENSION/LVH 14. HYPOTHYROIDISM 15. HYPERGLYCEMIA 16. SYSTOLIC MURMUR 17. CHRONIC ANEMIA 18. CAROTID STENOSIS 19. CONTACT DERMATITIS 20. GENERALIZED OSTEOARTHRITIS LAST VITALS Temp Pulse Resp BP Pulse Ox 97.8 F 78 16 140/51 L 94 L 03/17/20 05:50 03/17/20 05:50 03/17/20 05:50 03/17/20 05:50 03/17/20 09:56 DISCHARGE INSTRUCTIONS: 1. DISCHARGE HOME: TODAY, MARCH 17/2020 WITH COVID - 19 PRECAUTIONS LIVES WITH TWO SISTERS. 2. MD FOLLOW UP: SEE DR. WORLEY/JOSE ELIAS MALDONADO APRN/ADAM ANSARI APRN IN THE OFFICE ON MARCH 28, 2020 @ 0900 3. HOME OXYGEN @ 2 L/M PER N/C CONTINUOS PROVIDED PER [facility] # [phone] 4. CODE STATUS: DO NOT RESUSCITATE MEDICATIONS AT DISCHARGE: Budesonide/Formoterol Fumarate (Budesonide/Formoterol Fumarate 160/4.5 Mcg Inhaler) 2 puff IH BID [facility] Last Admin: 03/17/20 09:28 Dose: 2 puff Documented by: Cholecalciferol (Cholecalciferol (Vitamin D3) 1,000 Unit Tablet) 5,000 unit PO DAILY [facility] Last Admin: 03/17/20 09:11 Dose: 5,000 unit Documented by: Donepezil HCl (Donepezil Hcl 10 Mg Tablet) 5 mg PO DAILY [facility] Last Admin: 03/17/20 09:11 Dose: 5 mg Documented by: Glycerin (Glycerin 1 Each Supp.Rect) 1 each RC DAILY PRN PRN Reason: Constipation Last Admin: 03/15/20 17:34 Dose: 1 each Documented by: Levothyroxine Sodium (Levothyroxine Sodium 75 Mcg Tablet) 75 mcg PO QDAC [facility] Last Admin: 03/17/20 05:38 Dose: 75 mcg Documented by: Lorazepam (Lorazepam 1 Mg Tablet) 1 mg PO DAILY PRN PRN Reason: ANXIETY Memantine (Memantine Hcl 10 Mg Tablet) 10 mg PO QPM [facility] Last Admin: 03/16/20 17:10 Dose: 10 mg Documented by: Minoxidil (Minoxidil 2.5 Mg Tablet) 5 mg PO BID [facility] Last Admin: 03/17/20 09:12 Dose: 5 mg Documented by: Nifedipine (Nifedipine 30 Mg Tab.Er.24) 60 mg PO DAILY [facility] Last Admin: 03/17/20 09:12 Dose: 60 mg Documented by: Zinc Sulfate (Zinc Sulfate 220 Mg Capsule) 220 mg PO DAILY [facility] Last Admin: 03/17/20 09:12 Dose: 220 mg Documented by: PEPCID 20 MG PO BID KEFLEX 500 MG PO BID X 5 DAYS, START 03/18/2020 PREDNISONE 20 MG PO DAILY X 5 DAYS, START 03/18/2020 NEW PRESCRIPTIONS: PEPCID 20 MG PO BID SYMBICORT MDI 2 PUFFS IN THE AM KEFLEX 500 MG PO BID X 5 DAYS, START 03/18/2020 PREDNISONE 20 MG PO DAILY X 5 DAYS, START 03/18/2020 VITAMIN D3 5000 UNITS DAILY X 15 DAYS, START 03/18/2020 GYCERIN SUPPOSITORY ONE RECTALLY DAILY PRN ZINC 220 PO DAILY , STRAT 03/18/2020 DISCONTINUED MEDICATIONS: Ziac Pravastatin DIET INSTRUCTIONS: REGULAR WITH ENSURE 240 ML TWICE DAILY, PREFERABLY BETWEEN MEALS ACTIVITY: 1. UP TOLERATED WITH SUPERVISION. GET UP AND WALK IN HOME THROUGHOUT THE DAY FREQUENT REST PERIODS. 2. STAY HOME UNTIL MD APPOINTMENT. YOU ARE STILL CONSIDERED COVID-19 CONTAGIOUS THROUGH 03/20/2020, PLEASE RECOGNIZE PROPER PRECAUTIONS ACCORDING TO INSTRUCTIONS PROVIDED. SMOKING: NON- APPLICABLE DISEASE SPECIFIC EDUCATION: COVID PNEUMONIA COVID PRECAUTIONS JOSE D SYMBICORT MDI KEFLEX PREDNISONE HOSPITAL COURSE: 85-year-old female, Covid positive pneumonia was hospitalized in respiratory failure. The patient initially was managed by hospitalist service. I was consulted two days ago. The patient's respiratory status has improved remarkably with p02 in the 60s with oxygen saturation 83% on room air with normal PC02 now a lot better. The appetite has improved. Daughter had stayed with her for four to five days because of dementia but the dementia is under control. She is oriented to place and person. Her condition has improved for the past three days, she is afebrile. Appetite has improved. No shortness of breath on little exertion like she had. She is going to be discharged on antibiotics, Keflex. Zitromax four doses of 500 mg were given. Remdesivir was discontinued due to abnormal liver profile and deterioration of the patient's condition with some cardiac arrhythmias. Cardiac arrhythmias have mostly subsided except for atrial fibrillation that has persisted with at times lower ventricular response. Blood pressure is always systolic more than 120 to 130. Her slow rate usually happens at night with ventricular response to 40/min. The patient's idioventricular rhythm that was noted two days prior to discharge has been seen close to 36 to 48 hours. The patient also is going to be advised to continue Zinc, Famotidine, Symbicort, Vitamin D3 and medications except for beta nancy, Ziac and Pravachol. The patient's two sisters that she is living with also has Covid but they are at home and doing much better. They did not need hospitalization. The patient is also being taken care of by the daughter, who had stayed with her for 3 to 4 days. The patient insisted yesterday on going home and is ready to go home with stable cardiovascular and respiratory status. The patient also qualifies for oxygen at home. At rest her oxygen saturation is 94 to 95%. She was strongly advised to wear oxygen at night. She was explained about fever, chills and worsening of oxygen saturation. She has oximetry at home and if that happens to go to the nearest emergency room. She is DNR. The patient is advised to quarantine for at least 10 days after the discharge day today. The patient is to be seen in 10 to 14 days in the office on followup. CONDITION AT DISCHARGE: Stable. TIME SPENT: More than 60 minutes. MTDD
--- NOTE | 2020-03-18 09:43 | PN ---
BILLING 03/15/20 LEVEL 5 - CONSULTATION 03/16/20 EXTENSIVE 03/17/20 DISCHARGE MTDD
--- NOTE | 2020-03-18 09:51 | PN ---
DATE OF SERVICE: 03/17/20 - DISCHARGE NOTE SUBJECTIVE: The patient is up and about doing well. Oxygen saturation 94% on room air. Her color looks a lot better. She is talking better. She wants to go home as usual. Litzy, the daughter, also is willing to take her home. Both feel that the patient is good enough to go home. Her appetite has improved. REVIEW OF SYSTEMS: CONSTITUTIONAL: No night sweats. No fatigue, malaise, lethargy. No fever or chills. HEENT: Eyes: No visual changes. No eye pain. No eye discharge. ENT: No runny nose. No epistaxis. No sinus pain. No sore throat. No odynophagia. No congestion. RESPIRATORY: No cough, no congestion. No hemoptysis. No shortness of breath. CARDIOVASCULAR: No angina symptoms. No CHF symptoms. No atypical chest pain for CAD. No palpitations. No PND. No orthopnea. GASTROINTESTINAL: No abdominal pain. No nausea or vomiting. No diarrhea or constipation. No hematemesis. No hematochezia. GENITOURINARY: No urgency. No frequency. No dysuria. No hematuria. No obstructive symptoms. No discharge. No pain. No significant abnormal bleeding. MUSCULOSKELETAL: No musculoskeletal pain; no joint swelling. NEUROLOGICAL: No headache. No neck pain. No syncope. No seizures. No dizziness. PSYCHIATRIC: Not anxious. No depression. No suicidal thoughts. No homicidal thoughts. SKIN: No rash. No lesions. No wounds. ENDOCRINE: No unexplained weight loss. No weight gain. HEMATOLOGIC/LYMPHATIC: No anemia. No purpura. No petechiae. No prolonged or excessive bleeding. No palpable lymph nodes. PHYSICAL EXAMINATION: HEENT: Head normocephalic, atraumatic. Eyes: Extraocular muscles are intact. Pupils are equal, round and reactive to light and accommodation. Ears: No lesions. Nose appeared normal. Throat: No exudate or erythema. NECK: Supple. No JVD, no carotid bruit. No lymphadenopathy or thyromegaly. LUNGS: Decreased breath sounds but clear to auscultation. Percussion note normal. Chest symmetrical. HEART: S1, S2, no S3. No murmurs. No cyanosis or clubbing. No ascites. Pulses: Dorsalis pedis and posterior tibial pulses +1 to +2 bilaterally. ABDOMEN: Soft. Nontender. Bowel sounds active. No CVA tenderness. No mass felt. EXTREMITIES: No edema. Full range of motion of all extremities, equal. NEUROLOGIC: No focal deficit. Cranial nerves II through XII are grossly intact. No headache, no double vision or headache. SKIN: Not dry. Intact. Turgor - normal. LYMPHATIC: No palpable lymph nodes/no lymphedema. MUSCULOSKELETAL: Normal joints with no swelling. Muscle tone is normal. LABS: Stable with chronic anemia. ASSESSMENT/PLAN: 1. Will discharge the patient home. 2. Instructed the patient to quarantine at least 10 days after discharge. 3. To be seen in the office in 10 to 14 days. Quarantine measures discussed with the patient in detail. TIME SPENT: More than 30 minutes. Plan and coordination of the patient's care discussed in the presence of nurse. NILSON
== END 2020-03-17 13:45 | disposition home or self-care (01) | DRG 204 ==
LOC: ED 06:36 → SCU 10:13
PROVIDERS: ADMIT Emergency Medicine; ATTEND Internal Medicine
DX: E87.1 Hypo-osmolality and hyponatremia; I48.20 Chronic atrial fibrillation, unspecified; F03.90 Unspecified dementia, unspecified severity, without behavioral disturbance, psychotic disturbance, mood disturbance, and anxiety; M19.90 Unspecified osteoarthritis, unspecified site; I10 Essential (primary) hypertension; E87.6 Hypokalemia; D64.9 Anemia, unspecified; R06.02 Shortness of breath; E78.5 Hyperlipidemia, unspecified; I49.9 Cardiac arrhythmia, unspecified

== ENCOUNTER 2022-10-18 11:58 | Inpatient (IN) ==
--- NOTE | 2022-10-18 12:22 | ED.PDOC ---
General ED Provider: Dr. MAGUE RICHARDS MD Chief Complaint: Respiratory Complaint Stated Complaint: "I just feel jittery and weak" . Daughter states she has been weaker than normal for the past 2 days. Has a cough that is chronic, but has turned productive. Has been taking OTC cold medications recently. Also reports some mild substernal chest pain. Has lower extremity swelling, but daughter states that has been ongoing recently. Time Seen by Provider: 10/18/22 12:04 Information Source: Patient Exam Limitations: No limitations Primary Care Provider: ZITA WORLEY MD Nursing and Triage Documentation Reviewed and Agree: Yes Does patient meet sepsis criteria?: No If yes, has appropriate treatment been initiated?: No System Inflammatory Response Syndrome: Not Applicable Sepsis Protocol: For patient's 13 years and over: Temp is 96.8 and below OR 101 and greater Pulse >90 BPM Resp >20/minute Acutely Altered Mental Status Are patient's symptoms suggestive of a new infection, such as: -Pneumonia -Skin, Soft Tissue -Endocarditis -UTI -Bone, Joint Infection -Implantable Device -Acute Abdominal Infection -Wound Infection -Meningitis -Blood Stream Catheter Infection -Unknown Miscellaneous Complaint Exam Physical Examination Complaint/Exam Onset/Duration: 2 days ago Symptoms Are: Still present Timing: Constant Associated Signs and Symptoms: generalized weakness, some cough and shortness of breath. Related History: Reports No other known history Review of Systems Review Of Systems Constitutional: Reports No symptoms; Denies Chills or Fever Respiratory: Reports Cough and Short of air Cardiac: Reports Chest pain All Other Systems: Reviewed and Negative [facility] Medical History Alzheimer's dementia G30.9 - Alzheimer's disease, unspecified (ICD-10) F02.80 - Dementia in other diseases classified elsewhere without behavioral disturbance (ICD-10) Carotid stenosis I65.29 - Occlusion and stenosis of unspecified carotid artery (ICD-10) Chronic anemia D64.9 - Anemia, unspecified (ICD-10) Colonoscopy refused Z53.20 - Procedure and treatment not carried out because of patient's decision for unspecified reasons (ICD-10) COVID-19 U07.1 - COVID-19 (ICD-10) Dyslipidemia E78.5 - Hyperlipidemia, unspecified (ICD-10) History of contact dermatitis Z87.2 - Personal history of diseases of the skin and subcutaneous tissue (ICD-10) History of severe acute respiratory syndrome (SARS) Z87.09 - Personal history of other diseases of the respiratory system (ICD- 10) HTN (hypertension) I10 - Essential (primary) hypertension (ICD-10) Hyperglycemia R73.9 - Hyperglycemia, unspecified (ICD-10) Hypertension I10 - Essential (primary) hypertension (ICD-10) Hypothyroidism E03.9 - Hypothyroidism, unspecified (ICD-10) Labile hypertension R09.89 - Other specified symptoms and signs involving the circulatory and respiratory systems (ICD-10) LVH (left ventricular hypertrophy) due to hypertensive disease I11.9 - Hypertensive heart disease without heart failure (ICD-10) Mammogram declined Z53.20 - Procedure and treatment not carried out because of patient's decision for unspecified reasons (ICD-10) Metabolic syndrome E88.81 - Metabolic syndrome (ICD-10) Palpitations R00.2 - Palpitations (ICD-10) Sensorineural hearing loss (SNHL) of both ears H90.3 - Sensorineural hearing loss, bilateral (ICD-10) Sick sinus syndrome I49.5 - Sick sinus syndrome (ICD-10) Systolic murmur R01.1 - Cardiac murmur, unspecified (ICD-10) Weight gain R63.5 - Abnormal weight gain (ICD-10) Family History FATHER Prostate cancer Mother CHF (congestive heart failure) Other Unknown family medical history Social History Smoking and tobacco status: Former smoker Tobacco: How many years used: 25 How long ago did patient quit smokin years ago Alcohol intake: never Substance use type: does not use Household members: family Housing: house Marital status: W / Lives independently: No Number of children: 5 Current occupational status: retired Current gender identity: female Seatbelt use: always Drives intoxicated or rides with intoxicated industrial tractor 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: No Water heater temperature set < 120 degrees: Yes Working smoke detector in home: Yes Fire extinguisher in home: No Surgical History History of hysterectomy Z90.710 - Acquired absence of both cervix and uterus (ICD-10) Hx of hernia repair Z98.890 - Other specified postprocedural states (ICD-10) Z87.19 - Personal history of other diseases of the digestive system (ICD-10) S/P tubal ligation Z98.51 - Tubal ligation status (ICD-10) Female Reproductive History Menstrual Hx Hysterectomy: No Hx Tubal Ligation: No Physical Exam Physical Exam Appearance: Reports Well-appearing Ill-appearing: None Pain Distress: None Eyes: Reports VIRIDIANA and EOMI ENT: Reports Nose normal and Oropharynx normal Neck: Supple Respiratory: Reports Airway patent, Breath sounds clear and Breath sounds equal Cardiovascular: Reports RRR and Pulses normal GI/: Reports Soft and Nontender Musculoskeletal: Reports Normal strength, ROM intact and Edema (trace lower extremity edema) Skin: Reports Warm, Dry and Normal color Neurological: Reports Sensation intact, Motor intact, Reflexes intact, Cranial nerves intact and Alert Psychiatric: Reports Affect appropriate and Mood appropriate Interpretation Radiology Interpretation Radiology Interpretation By: ED Physician Radiology Results: Positive Exam Interpreted: CXR (hiatal hernia, no acute lung pathology) EKG Interpretation Time of EKG #1: 01:20 Rate: Normal Rhythm: Sinus [place]: Left ST Segment: Other (ST depression lateral V6, LVH) Critical Care Note Critical Care Note Total Critical Care Time (mins): 0 Course Course 10/18/22 12:25 10/18/22 12:25 Orders, Labs, Meds: Lab Review 10/18/22 10/18/22 12:25 Unknown WBC 15.24 H RBC 4.34 Hgb 12.5 Hct 38.8 MCV 89.4 MCH 28.8 MCHC 32.2 RDW Coeff of Minda 14.6 Plt Count 267 Immature Gran % (Auto) 0.4 Neut % (Auto) 85.7 H Lymph % (Auto) 7.9 L [place] % (Auto) 5.7 Eos % (Auto) 0.0 Baso % (Auto) 0.3 Neut # (Auto) 13.1 H Lymph # (Auto) 1.2 [place] # (Auto) 0.9 Eos # (Auto) 0.0 Baso # (Auto) 0.1 Immature Gran # (Auto) 0.1 Sodium 133.9 L Potassium 4.06 Chloride 102.4 Carbon Dioxide 20.5 L Anion Gap 15.06 BUN 16.9 Creatinine 0.85 Estimated GFR (MDRD) 64.00 BUN/Creatinine Ratio 19.88 Glucose 168.3 H Calcium 8.68 Total Bilirubin 1.18 AST 28.1 ALT 20.3 Alkaline Phosphatase 106.2 Troponin I 0.064 NT-Pro-B Natriuret Pep 5250 H Total Protein 8.31 H Albumin 4.50 Globulin 3.81 Albumin/Globulin Ratio 1.18 SARS CoV-2 RNA Rapid SANTO Negative Orders Category Date Time Status ADMIT OBSERVATION [PLACE PATIENT OBSERVATION] .TO ADMISSION 10/18/22 13:41 Ordered MEDSURG (MONITORED BED) EKG-(ED ONLY) Stat CARDIO 10/18/22 12:16 Completed EKG-(IP & OP ONLY) DAILY CARDIO 10/19/22 06:00 Ordered EKG-(IP & OP ONLY) DAILY CARDIO 10/20/22 06:00 Ordered EKG-(IP & OP ONLY) Stat CARDIO 10/18/22 13:42 Ordered OXYGEN Routine CARDIO 10/18/22 13:42 Ordered ACTIVITY .BR with BRP CARE 10/18/22 13:42 Ordered IP: INSERT SALINE LOCK ONCE CARE 10/18/22 13:42 Ordered TELEMETRY MONITORING TELE CARE 10/18/22 13:41 Ordered TELEMETRY MONITORING TELE CARE 10/18/22 13:42 Ordered VITAL SIGNS Q8HR CARE 10/18/22 13:42 Ordered CARDIAC DIET DIETARY 10/18/22 Dinner Ordered C-REACTIVE PROTEIN Stat LAB 10/18/22 12:25 Received CBC W/ AUTO DIFF Stat LAB 10/18/22 12:25 Completed CBC W/ AUTO DIFF Stat LAB 10/18/22 13:42 Ordered CMP [COMPREHENSIVE METABOLIC PANEL] Stat LAB 10/18/22 12:25 Completed COMPREHENSIVE METABOLIC PANEL Stat LAB 10/18/22 13:42 Ordered ED PROBNP [NT-PROBNP(ED)] Stat LAB 10/18/22 12:25 Completed SARS COV-2 RNA RAPID SANTO Stat LAB 10/18/22 Completed TROPONIN I Q8H LAB 10/18/22 13:45 Ordered TROPONIN I Q8H LAB 10/18/22 21:45 Ordered TROPONIN I Stat LAB 10/18/22 12:25 Completed UA [URINALYSIS C & S IF INDICATED] Stat LAB 10/18/22 12:17 Uncollected 0.9 % Sodium Chloride [Saline Flush] MEDS 10/18/22 21:00 Ordered 1 syr IVF Q8HR Acetaminophen [Tylenol] MEDS 10/18/22 13:42 Ordered 650 mg PO Q4H PRN Atropine Sulfate Inj [Atropine Sulfate Pfs] MEDS 10/18/22 13:42 Ordered 0.5 mg IVP ONCE PRN Nitroglycerin [Nitrostat] MEDS 10/18/22 13:42 Ordered 0.4 mg SL Q5MIN X 3 DOSES PRN CHEST, 2 VIEWS PA & LAT Stat RADS 10/18/22 12:16 Completed Vital Signs: Temp Pulse Resp BP Pulse Ox 10/18/22 12:00 99 F 127 H 22 H 113/59 L [address] Carlos Worley, he would like her admitted to the hospital, routine telemetry order Patient and her daughter Litzy, made aware and are comfortable with the plan Discharge Plan Discharge Patient Disposition: ADMITTED INPATIENT Discharge Problem: CHF (congestive heart failure), Hypoxia Did you review [place] MACHINE OPERATIONS SUPERVISOR for ALL controlled substances?: Not Applicable ED Provider: MAGUE RICHARDS Physician Progress Note: []
[2022-10-18 12:30] LABS: BASOPHILS # (AUTO) 0.1 K/uL (0-0.2); BASOPHILS % (AUTO) 0.3 % (0.0-3.0); HEMATOCRIT 38.8 % (37.0-47.0); HEMOGLOBIN 12.5 g/dl (12.0-16.0); IMMATURE GRANULOCYTE # (AUTO) 0.1 (0.0-1.0); IMMATURE GRANULOCYTE % (AUTO) 0.4 % (0.0-5.0); LYMPHOCYTES # (AUTO) 1.2 K/uL (0.60-3.4); LYMPHOCYTES % (AUTO) 7.9 (10.0-50.0); MEAN CORPUSCULAR HEMOGLOBIN 28.8 pg (27.0-31.0); MEAN CORPUSCULAR HGB CONC 32.2 (31.8-35.4); MEAN CORPUSCULAR VOLUME 89.4 fl (81.0-99.0); MONOCYTES # (AUTO) 0.9 K/uL (0.4-2.0); MONOCYTES % (AUTO) 5.7 (0-10); NEUTROPHILS # (AUTO) 13.1 K/ul (2.0-6.9); NEUTROPHILS % (AUTO) 85.7 % (42.2-75.2); PLATELET COUNT 267 10^3/uL (140-440); RDW COEFFICIENT OF VARIATION 14.6 % (11.6-14.8); RED BLOOD COUNT 4.34 10^6/ul (4.20-5.40); WHITE BLOOD COUNT 15.24 K/ul (4.6-10.2)
[2022-10-18 12:42] LABS: ALANINE AMINOTRANSFERASE 20.3 U/L (0-35); ALBUMIN 4.5 g/dL (3.5-5.0); ALKALINE PHOSPHATASE 106.2 U/L (53-141); ASPARTATE AMINO TRANSFERASE 28.1 U/L (14-36); BILIRUBIN,TOTAL 1.18 mg/dL (0.2-1.3); BLOOD UREA NITROGEN 16.9 mg/dL (7-17); CALCIUM 8.68 mg/dL (8.4-10.2); CARBON DIOXIDE 20.5 mmol/L (22-30.0); CHLORIDE 102.4 mmol/L (98-107); CREATININE 0.85 mg/dL (0.60-1.30); GLUCOSE 168.3 mg/dL (74-106); POTASSIUM 4.06 mmol/L (3.5-5.1); SODIUM 133.9 mmol/L (134.5-145); TOTAL PROTEIN 8.31 g/dL (6.3-8.2)
[2022-10-18 12:54] LABS: TROPONIN I 0.064 ng/ml (0.0000-0.120)
--- NOTE | 2022-10-18 13:09 | DI ---
EXAM: CHEST RADIOGRAPH TECHNIQUE: Two views. Frontal and lateral. HISTORY: Cough COMPARISON: 03/14/2020 FINDINGS: Lungs/Pleura: Coarse interstitial markings. Mild patchy markings in the peripheral right perihilar r egion and right lower lobe may be due to scarring. Heart: The heart size is normal. Bones: Unremarkable. Other: Large axial hiatal hernia with an air-fluid level. IMPRESSION: 1. Coarse interstitial markings. Possible scarring in the right perihilar region and lower lobe. L arge axial hiatal hernia.
[2022-10-18 13:36] LABS: SARS COV-2 RNA RAPID NAAT NEGATIVE (NEGATIVE)
[2022-10-18] MEDS ORDERED: ATROPINE SULFATE PFS IVP PRN (13:42)
[2022-10-18] MEDS ORDERED: NITROSTAT SL PRN (13:42)
[2022-10-18 15:38] VITALS: BMI 28.7
[2022-10-18] MEDS ORDERED: ATIVAN PO PRN (16:06)
[2022-10-18] MEDS: COREG PO SCH (17:02)
[2022-10-18] MEDS: DECADRON IVP SCH (17:02)
[2022-10-18] MEDS: ZITHROMAX 500 MG in SODIUM CHLORIDE 250 ML IV SCH (17:03)
[2022-10-18] MEDS: PEPCID PO SCH (20:24)
[2022-10-18] MEDS: COZAAR PO SCH (20:25)
[2022-10-18] MEDS: MINOXIDIL PO SCH (20:25)
[2022-10-18] MEDS: ELIQUIS PO SCH (20:25)
[2022-10-19 04:44] LABS: BASOPHILS % (AUTO) 0.2 % (0.0-3.0); HEMATOCRIT 34.8 % (37.0-47.0); HEMOGLOBIN 11.4 g/dl (12.0-16.0); IMMATURE GRANULOCYTE # (AUTO) 0.1 (0.0-1.0); IMMATURE GRANULOCYTE % (AUTO) 0.6 % (0.0-5.0); LYMPHOCYTES # (AUTO) 0.9 K/uL (0.60-3.4); LYMPHOCYTES % (AUTO) 7.8 (10.0-50.0); MEAN CORPUSCULAR HEMOGLOBIN 29.2 pg (27.0-31.0); MEAN CORPUSCULAR HGB CONC 32.8 (31.8-35.4); MONOCYTES # (AUTO) 0.5 K/uL (0.4-2.0); MONOCYTES % (AUTO) 4.2 (0-10); NEUTROPHILS # (AUTO) 10.2 K/ul (2.0-6.9); NEUTROPHILS % (AUTO) 87.2 % (42.2-75.2); PLATELET COUNT 221 10^3/uL (140-440); RDW COEFFICIENT OF VARIATION 14.5 % (11.6-14.8); RED BLOOD COUNT 3.91 10^6/ul (4.20-5.40); WHITE BLOOD COUNT 11.64 K/ul (4.6-10.2)
[2022-10-19 04:56] LABS: ALANINE AMINOTRANSFERASE 15.1 U/L (0-35); ALBUMIN 4.02 g/dL (3.5-5.0); ALKALINE PHOSPHATASE 101.8 U/L (53-141); ASPARTATE AMINO TRANSFERASE 21.4 U/L (14-36); BILIRUBIN,TOTAL 0.72 mg/dL (0.2-1.3); BLOOD UREA NITROGEN 18.7 mg/dL (7-17); CALCIUM 8.67 mg/dL (8.4-10.2); CARBON DIOXIDE 24.7 mmol/L (22-30.0); CHLORIDE 103.8 mmol/L (98-107); CREATININE 0.81 mg/dL (0.60-1.30); GLUCOSE 163.7 mg/dL (74-106); POTASSIUM 4.35 mmol/L (3.5-5.1); SODIUM 133.6 mmol/L (134.5-145); TOTAL PROTEIN 7.48 g/dL (6.3-8.2)
[2022-10-19 05:08] LABS: TROPONIN I 0.04 ng/ml (0.0000-0.120)
[2022-10-19] MEDS: SYNTHROID PO SCH (05:42)
[2022-10-19] MEDS: PRAVACHOL PO SCH (08:59)
[2022-10-19] MEDS: PEPCID PO SCH ×2 (09:00→20:50)
[2022-10-19] MEDS: COZAAR PO SCH ×2 (09:00→20:50)
[2022-10-19] MEDS: MINOXIDIL PO SCH ×2 (09:00→20:51)
[2022-10-19] MEDS: ARICEPT PO SCH (09:00)
[2022-10-19] MEDS: PROCARDIA XL PO SCH (09:00)
[2022-10-19] MEDS: NAMENDA PO SCH (09:00)
[2022-10-19] MEDS: LEXAPRO PO SCH (09:00)
[2022-10-19] MEDS: COREG PO SCH ×2 (09:00→17:07)
[2022-10-19] MEDS: ELIQUIS PO SCH ×2 (09:01→20:50)
[2022-10-19] MEDS: ZITHROMAX 500 MG in SODIUM CHLORIDE 250 ML IV SCH (09:01)
[2022-10-19] MEDS: DECADRON IVP SCH (09:47)
[2022-10-19] MEDS ORDERED: LASIX IVP ONE (10:01)
[2022-10-19 10:30] LABS: BILIRUBIN,URINE Negative (NEGATIVE); CLARITY,URINE Clear (CLEAR); COLOR,URINE Yellow (YELLOW); GLUCOSE, URINE (UA) Negative (NEGATIVE); KETONES,URINE Negative (NEGATIVE); LEUKOCYTE ESTERASE ,URINE Negative (NEGATIVE); NITRITE,URINE Negative (NEGATIVE); PROTEIN,URINE 1+ (NEGATIVE); URINE, BLOOD Trace-intact (NEGATIVE); UROBILINOGEN,URINE 0.2 (0.2)
[2022-10-19 10:31] LABS: SQUAMOUS EPITHELIAL CELL,UR 0-2 (0-5); URINE WBC, MICROSCOPIC 0-2 (0-2)
[2022-10-19 10:32] LABS: MUCUS,URINE 2+ (NOT PRESENT)
--- NOTE | 2022-10-19 14:51 | HP ---
DATE OF SERVICE: 10/18/22 REASON FOR HOSPITALIZATION: Patient was hospitalized through the emergency room. Patient's daughter came to the office and said that patient had leg swelling and she has been jittery and weak, chronic cough productive of slightly yellowish. Sent patient to the emergency room for which she agreed. Patient had substernal chest pain too. MEDICAL/SURGICAL HISTORY: History of dementia Carotid occlusive disease with dyslipidemia History of contact dermatitis History of Covid (February 2020) with respiratory failure Hypertension, LVH Hypothyroidism Dyslipidemia Chronic anemia Metabolic syndrome History of sick sinus syndrome - denied pacemaker February 2022 Labile hypertension Systolic murmur with calcified aortic valve Paroxysmal atrial fibrillation Patient has declined colonoscopy, colocare, mammogram. PAST SURGICAL HISTORY: Hysterectomy REVIEW OF SYSTEMS: CONSTITUTIONAL: Weakness and fatigue. HEENT: Eyes: No visual changes. No eye pain. No eye discharge. ENT: No runny nose. No epistaxis. No sinus pain. No sore throat. No odynophagia. No ear pain. No congestion. RESPIRATORY: Cough with mildly yellowish for the last several days. No hemoptysis. CARDIOVASCULAR: Chest discomfort but no exertional chest pain. No PND. No orthopnea. Shortness of breath on exertion. GASTROINTESTINAL: Appetite has not been up to par. No nausea or vomiting. GENITOURINARY: No urgency. No frequency. No dysuria. No hematuria. No obstructive symptoms. No discharge. No pain. No significant abnormal bleeding. MUSCULOSKELETAL: Weakness of upper and lower extremities. Unable to walk on her own. NEUROLOGICAL: No headache. No neck pain. No syncope. No seizures. No dizziness. PSYCHIATRIC: Not anxious. No depression. No suicidal thoughts. No homicidal thoughts. SKIN: No rash. No lesions. No wounds. ENDOCRINE: No unexplained weight loss. No weight gain. HEMATOLOGIC/LYMPHATIC: No anemia. No purpura. No petechiae. No prolonged or excessive bleeding. No palpable lymph nodes. PERSONAL/FAMILY/SOCIAL HISTORY: Mother with CHF Father with prostate cancer Former smoker. No alcohol abuse. . MEDICATIONS: Procardia XL 60 mg PO daily Ativan Minoxidil 2.5 twice a day Levothyroxine Thyroxine Eliquis Pravachol 80 daily Synthroid 100 micrograms daily Aricept Namenda Cipro Losartan 50 BID PHYSICAL EXAMINATION: GENERAL: The patient is alert, oriented to person, place. VITAL SIGNS: Temperature 99, pulse 110, respiratory rate 22, blood pressure 113/59, pulse ox 88%. Patient's oxygen saturation fluctuates from 88-95%. HEENT: Head normocephalic, atraumatic. Eyes: Extraocular muscles are intact. Pupils are equal, round and reactive to light and accommodation. Ears: No lesions. Nose appeared normal. Throat: No exudate or erythema. NECK: No JVD, no carotid bruit. No ascites. LUNGS: Decreased breath sounds but clear. HEART: S1, S2. Grade 1/6 systolic murmur. ABDOMEN: Soft. Bowel sounds active. EXTREMITIES: +1 to +2 pitting edema. Pedal pulses +1 bilaterally. NEUROLOGIC: Normal. SKIN: Not dry. Intact. Turgor - normal. LYMPHATIC: No palpable lymph nodes/no lymphedema. MUSCULOSKELETAL: Normal joints with no swelling. Muscle tone is normal. EKG showed sinus rhythm at a rate of 84 per minute, left axis deviation, LVH. Left hiatal hernia. No pneumonia. LABS: Hemoglobin 12, hematocrit 38, WBC 15,000, potassium 4, creatinine 0.8, BUN 16, ProBNP 5,250, total protein 8.3, SARS negative. ASSESSMENT: 1. ACTIVE BRONCHITIS WITH HISTORY OF CHRONIC LUNG DISEASE WITH HISTORY OF SMOKING. 2. POSSIBILITY OF CHF 3. FLUID RETENTION, DEPENDENT LEG EDEMA 4. DEMENTIA 5. SEVERE HYPERTENSION 6. HYPOTHYROIDISM 7. DYSLIPIDEMIA 8. HISTORY OF SICK SINUS SYNDROME 9. HISTORY OF PAROXYSMAL ATRIAL FIBRILLATION PLAN: 1. Give IV Lasix 40 2. Start Zithromax 500 daily x3 4. 4 mg IV steroids Decadron today and daily 5. Maybe nebs treatment if needed 6. Oxygen supplement 7. Monitor oximetry and telemetry 8. Monitor cardiac markers 9. Carvedilol 3.125 PO twice a day 10. Cut down on Procardia XL from 60 to 30 because of leg swelling 11. Continue rest of medications. 12. Will do echocardiogram to evaluate LV function Chest pain seems to be from bronchitis. Patient is a very poor historian. Code Status: DNR Condition: Stable for now TIME SPENT: More than 75 minutes. MTDD
[2022-10-20] MEDS: TYLENOL PO PRN ×3 (00:36→20:41)
[2022-10-20 05:19] LABS: BASOPHILS % (AUTO) 0.1 % (0.0-3.0); HEMOGLOBIN 11.2 g/dl (12.0-16.0); IMMATURE GRANULOCYTE # (AUTO) 0.1 (0.0-1.0); IMMATURE GRANULOCYTE % (AUTO) 0.4 % (0.0-5.0); LYMPHOCYTES # (AUTO) 1.2 K/uL (0.60-3.4); LYMPHOCYTES % (AUTO) 8.2 (10.0-50.0); MEAN CORPUSCULAR HEMOGLOBIN 28.3 pg (27.0-31.0); MEAN CORPUSCULAR VOLUME 88.4 fl (81.0-99.0); MONOCYTES # (AUTO) 0.8 K/uL (0.4-2.0); NEUTROPHILS % (AUTO) 86.3 % (42.2-75.2); PLATELET COUNT 288 10^3/uL (140-440); RDW COEFFICIENT OF VARIATION 14.2 % (11.6-14.8); RED BLOOD COUNT 3.96 10^6/ul (4.20-5.40); WHITE BLOOD COUNT 15.07 K/ul (4.6-10.2)
[2022-10-20 05:33] LABS: ALANINE AMINOTRANSFERASE 14.6 U/L (0-35); ALBUMIN 3.74 g/dL (3.5-5.0); ALKALINE PHOSPHATASE 99.1 U/L (53-141); ASPARTATE AMINO TRANSFERASE 22.9 U/L (14-36); BILIRUBIN,TOTAL 0.42 mg/dL (0.2-1.3); BLOOD UREA NITROGEN 29.9 mg/dL (7-17); CALCIUM 8.84 mg/dL (8.4-10.2); CREATININE 0.79 mg/dL (0.60-1.30); GLUCOSE 137.7 mg/dL (74-106); POTASSIUM 3.95 mmol/L (3.5-5.1); SODIUM 135.3 mmol/L (134.5-145); TOTAL PROTEIN 7.1 g/dL (6.3-8.2)
[2022-10-20] MEDS: LASIX IVP SCH (05:58)
[2022-10-20] MEDS: SYNTHROID PO SCH (05:58)
[2022-10-20] MEDS ORDERED: LASIX IVP SCH (06:30)
[2022-10-20] MEDS: NAMENDA PO SCH (09:39)
[2022-10-20] MEDS: PROCARDIA XL PO SCH (09:40)
[2022-10-20] MEDS: PEPCID PO SCH ×2 (09:40→20:41)
[2022-10-20] MEDS: COZAAR PO SCH ×2 (09:40→20:41)
[2022-10-20] MEDS: ARICEPT PO SCH (09:41)
[2022-10-20] MEDS: COREG PO SCH ×2 (09:41→16:54)
[2022-10-20] MEDS: PRAVACHOL PO SCH (09:41)
[2022-10-20] MEDS: LEXAPRO PO SCH (09:42)
[2022-10-20] MEDS: ELIQUIS PO SCH ×2 (09:43→20:41)
[2022-10-20] MEDS: ZITHROMAX 500 MG in SODIUM CHLORIDE 250 ML IV SCH (09:43)
[2022-10-20] MEDS: MINOXIDIL PO SCH ×2 (09:43→20:41)
[2022-10-20] MEDS ORDERED: FLONASE NAS PRN (17:50)
[2022-10-20] MEDS ORDERED: VISTARIL PO PRN (19:52)
[2022-10-21 05:17] LABS: BASOPHILS % (AUTO) 0.1 % (0.0-3.0); EOSINOPHILS % (AUTO) 0.1 % (0.0-7.0); IMMATURE GRANULOCYTE # (AUTO) 0.1 (0.0-1.0); IMMATURE GRANULOCYTE % (AUTO) 0.5 % (0.0-5.0); LYMPHOCYTES # (AUTO) 1.7 K/uL (0.60-3.4); LYMPHOCYTES % (AUTO) 14.4 (10.0-50.0); MEAN CORPUSCULAR HEMOGLOBIN 28.4 pg (27.0-31.0); MEAN CORPUSCULAR HGB CONC 32.4 (31.8-35.4); MEAN CORPUSCULAR VOLUME 87.9 fl (81.0-99.0); MONOCYTES % (AUTO) 8.2 (0-10); NEUTROPHILS # (AUTO) 8.9 K/ul (2.0-6.9); NEUTROPHILS % (AUTO) 76.7 % (42.2-75.2); PLATELET COUNT 280 10^3/uL (140-440); RDW COEFFICIENT OF VARIATION 14.5 % (11.6-14.8); RED BLOOD COUNT 3.87 10^6/ul (4.20-5.40); WHITE BLOOD COUNT 11.65 K/ul (4.6-10.2)
[2022-10-21 05:30] LABS: ALANINE AMINOTRANSFERASE 12.4 U/L (0-35); ALBUMIN 3.58 g/dL (3.5-5.0); ALKALINE PHOSPHATASE 98.5 U/L (53-141); ASPARTATE AMINO TRANSFERASE 19.6 U/L (14-36); BILIRUBIN,TOTAL 0.61 mg/dL (0.2-1.3); BLOOD UREA NITROGEN 26.4 mg/dL (7-17); CALCIUM 8.46 mg/dL (8.4-10.2); CARBON DIOXIDE 26.6 mmol/L (22-30.0); CHLORIDE 104.8 mmol/L (98-107); CREATININE 0.76 mg/dL (0.60-1.30); GLUCOSE 108.4 mg/dL (74-106); POTASSIUM 3.62 mmol/L (3.5-5.1); SODIUM 136.5 mmol/L (134.5-145); TOTAL PROTEIN 6.86 g/dL (6.3-8.2)
[2022-10-21] MEDS: SYNTHROID PO SCH (05:30)
[2022-10-21] MEDS: LASIX IVP SCH (05:38)
[2022-10-21 05:48] VITALS: BP 114/68; TEMP 98.7
[2022-10-21] MEDS: PRAVACHOL PO SCH (10:05)
[2022-10-21] MEDS: PROCARDIA XL PO SCH (10:06)
[2022-10-21] MEDS: PEPCID PO SCH (10:06)
[2022-10-21] MEDS: COREG PO SCH (10:06)
[2022-10-21] MEDS: MINOXIDIL PO SCH (10:07)
[2022-10-21] MEDS: LEXAPRO PO SCH (10:07)
[2022-10-21] MEDS: COZAAR PO SCH (10:07)
[2022-10-21] MEDS: NAMENDA PO SCH (10:08)
[2022-10-21] MEDS: ARICEPT PO SCH (10:08)
[2022-10-21] MEDS: ELIQUIS PO SCH (10:09)
[2022-10-21 12:25] LABS: ABG O2 HGB 87.6 % (95-100); COHb 2.4 (0.5-1.5); HCO3 24.2 (21-28); MetHb 0.8 (0-1.5); TCO2 25.2 (19-24); sO2 89.6 % (94-98); tHb 11.4 g/dl (11.7-17.4)
--- NOTE | 2022-10-22 15:17 | PN ---
DATE OF SERVICE: 10/19/22 SUBJECTIVE: 87 year old white female hospitalized with hypertension, bronchitis. Patient's condition seems to have improved. She has less edema. REVIEW OF SYSTEMS: CONSTITUTIONAL: No night sweats. No fatigue, malaise, lethargy. No fever or chills. HEENT: Eyes: No visual changes. No eye pain. No eye discharge. ENT: No runny nose. No epistaxis. No sinus pain. No sore throat. No odynophagia. No congestion. RESPIRATORY: No cough, no congestion. No hemoptysis. No shortness of breath. CARDIOVASCULAR: No chest pain. No palpitations. No PND. No orthopnea. GASTROINTESTINAL: No abdominal pain. No nausea or vomiting. No diarrhea or constipation. No hematemesis. No hematochezia. GENITOURINARY: No urgency. No frequency. No dysuria. No hematuria. No obstructive symptoms. No discharge. No pain. No significant abnormal bleeding. MUSCULOSKELETAL: No musculoskeletal pain; no joint swelling. NEUROLOGICAL: No headache. No neck pain. No syncope. No seizures. No dizziness. PSYCHIATRIC: Not anxious. No depression. No suicidal thoughts. No homicidal thoughts. SKIN: No rash. No lesions. No wounds. ENDOCRINE: No unexplained weight loss. No weight gain. HEMATOLOGIC/LYMPHATIC: No anemia. No purpura. No petechiae. No prolonged or excessive bleeding. No palpable lymph nodes. PHYSICAL EXAMINATION: GENERAL: The patient is confused but oriented to person and place. VITAL SIGNS: Temperature 97.8, pulse 90, respiratory rate 16, blood pressure 106/66, pulse ox 92%. HEENT: Head normocephalic, atraumatic. Eyes: Extraocular muscles are intact. Pupils are equal, round and reactive to light and accommodation. Ears: No lesions. Nose appeared normal. Throat: No exudate or erythema. NECK: Supple. LUNGS: Decreased breath sounds but clear. HEART: S1, S2, no S3. No murmurs. No cyanosis or clubbing. No ascites. Pulses: Dorsalis pedis and posterior tibial pulses +1 to +2 bilaterally. ABDOMEN: Soft. Bowel sounds active. EXTREMITIES: No edema. Full range of motion of all extremities, equal. NEUROLOGIC: No focal deficit. Cranial nerves II through XII are grossly intact. No headache. No double vision. SKIN: Not dry. Intact. Turgor - normal. LYMPHATIC: No palpable lymph nodes/no lymphedema. MUSCULOSKELETAL: Normal joints with no swelling. Muscle tone is normal. LABS: Hemoglobin 11.4, hematocrit 34, WBC 11,000, normal differential, creatinine 0.8, BUN 18, potassium 4.3. Patient had echocardiogram done which was practically unchanged from the one done in 2019, LV contractility and enlarged LA cavity. ASSESSMENT: 1. Leg edema is much less than before. 2. Hypertension seems to be resolving. 3. Active bronchitis seems to be better with less coughing. Oxygen saturation is a lot better, more than 90% with a couple of liters. PLAN: 1. Continue IV Lasix. 2. Continue antibiotics. Condition: Stable, improving TIME SPENT: More than 35 minutes. Plan and coordination of the patient's care discussed in the presence of nurse. NILSON
--- NOTE | 2022-10-22 15:28 | PN ---
DATE OF SERVICE: 10/20/22 SUBJECTIVE: 87 year old white female hospitalized with CHF and likely fluid retention, bronchitis. Her daughter is present in the room with her. Patient has chronic lung disease. Her condition seems to have improved some with no symptoms of CHF and no bronchitis. She wants to go home. She has been ready for the last couple of days to go home. Her appetite has improved and her mental status is somewhat better. REVIEW OF SYSTEMS: CONSTITUTIONAL: No night sweats. No fatigue, malaise, lethargy. No fever or chills. HEENT: Eyes: No visual changes. No eye pain. No eye discharge. ENT: No runny nose. No epistaxis. No sinus pain. No sore throat. No odynophagia. No congestion. RESPIRATORY: No cough, no congestion. No hemoptysis. No shortness of breath. CARDIOVASCULAR: No chest pain. No palpitations. No PND. No orthopnea. GASTROINTESTINAL: Appetite has improved. GENITOURINARY: No urgency. No frequency. No dysuria. No hematuria. No obstructive symptoms. No discharge. No pain. No significant abnormal bleeding. MUSCULOSKELETAL: No musculoskeletal pain; no joint swelling. NEUROLOGICAL: No headache. No neck pain. No syncope. No seizures. No dizziness. PSYCHIATRIC: Not anxious. No depression. No suicidal thoughts. No homicidal thoughts. SKIN: No rash. No lesions. No wounds. ENDOCRINE: No unexplained weight loss. No weight gain. HEMATOLOGIC/LYMPHATIC: No anemia. No purpura. No petechiae. No prolonged or excessive bleeding. No palpable lymph nodes. PHYSICAL EXAMINATION: GENERAL: The patient is oriented to person and place. VITAL SIGNS: Temperature 98, pulse 64, respiratory rate 16, blood pressure 104/62, pulse ox 92% on room air. HEENT: Head normocephalic, atraumatic. Eyes: Extraocular muscles are intact. Pupils are equal, round and reactive to light and accommodation. Ears: No lesions. Nose appeared normal. Throat: No exudate or erythema. NECK: Supple. LUNGS: Decreased breath sounds but clear. HEART: Systolic murmurs. ABDOMEN: Soft. EXTREMITIES: Trace edema. NEUROLOGIC: No focal deficit. Cranial nerves II through XII are grossly intact. No headache. No double vision. SKIN: Not dry. Intact. Turgor - normal. LYMPHATIC: No palpable lymph nodes/no lymphedema. MUSCULOSKELETAL: Normal joints with no swelling. Muscle tone is normal. LABS: Hemoglobin 11.2, hematocrit 35, WBC 15,000, normal differential, creatinine 0.7, BUN 29, potassium 3.9 ASSESSMENT: 1. CHF seems to have resolved with leg edema much better. 2. Acute bronchitis with chronic lung disease improved. 3. Hypertension under control. 4. Dementia, stable. PLAN: 1. Discharge home tomorrow. 2. Patient's blood pressure seems to be under control and oxygen level is a lot better even on room air. Will likely be discharged on Lasix and Potassium to be taken at home and Carvedilol. 3. Bradyarrhythmias noted during this hospitalization. 4. Advised to keep legs up and advised to cut down on salt; again, the daughter is present in the room. CHF discussed, likely it's bronchitis along with fluid retention causing the proBNP to go up. TIME SPENT: More than 35 minutes. Plan and coordination of the patient's care discussed in the presence of nurse. NILSON
--- NOTE | 2022-10-22 15:40 | PN ---
DATE OF SERVICE: 10/21/22 DISCHARGE NOTE SUBJECTIVE: 87 year old female was admitted on 10/18/22 with fluid retention and possibility of CHF with acute bronchitis, COPD. Patient was treated with IV antibiotics and later on steroids. Patient's condition seems to have improved. Patient was given Zithromax for three days and steroids were given. Patient's daughter is present in the room. REVIEW OF SYSTEMS: CONSTITUTIONAL: No night sweats. No fatigue, malaise, lethargy. No fever or chills. HEENT: Eyes: No visual changes. No eye pain. No eye discharge. ENT: No runny nose. No epistaxis. No sinus pain. No sore throat. No odynophagia. No congestion. RESPIRATORY: No cough, no congestion. No hemoptysis. No shortness of breath. CARDIOVASCULAR: No chest pain. No palpitations. No PND. No orthopnea. GASTROINTESTINAL: Appetite has improved. GENITOURINARY: No urgency. No frequency. No dysuria. No hematuria. No obstructive symptoms. No discharge. No pain. No significant abnormal bleeding. MUSCULOSKELETAL: No musculoskeletal pain; no joint swelling. NEUROLOGICAL: No headache. No neck pain. No syncope. No seizures. No dizziness. PSYCHIATRIC: Not anxious. No depression. No suicidal thoughts. No homicidal thoughts. SKIN: No rash. No lesions. No wounds. ENDOCRINE: No unexplained weight loss. No weight gain. HEMATOLOGIC/LYMPHATIC: No anemia. No purpura. No petechiae. No prolonged or excessive bleeding. No palpable lymph nodes. PHYSICAL EXAMINATION: GENERAL: The patient's mental status is better. VITAL SIGNS: Temperature 98.7, pulse 64, respiratory rate 16, blood pressure 114/64, pulse ox 89% on room air. HEENT: Head normocephalic, atraumatic. Eyes: Extraocular muscles are intact. Pupils are equal, round and reactive to light and accommodation. Ears: No lesions. Nose appeared normal. Throat: No exudate or erythema. NECK: Supple. LUNGS: Decreased breath sounds with good air entry. HEART: S1, S2. Grade 2/6 systolic murmur. ABDOMEN: Soft. EXTREMITIES: Trace edema. NEUROLOGIC: No focal deficit. Cranial nerves II through XII are grossly intact. No headache. No double vision. SKIN: Not dry. Intact. Turgor - normal. LYMPHATIC: No palpable lymph nodes/no lymphedema. MUSCULOSKELETAL: Normal joints with no swelling. Muscle tone is normal. LABS: Hemoglobin 11, hematocrit 34, WBC 11,000, normal differential, creatinine 0.7, BUN 26, potassium 3.6. ASSESSMENT: 1. CHF seems to have resolved and fluid retention is much better. 2. Acute bronchitis and COPD under control. PLAN: 1. Discharge patient on Lasix, Potassium and Carvedilol. 2. Elevate the legs and cut down on salt intake. 3. Patient is to be seen in 5-7 days Condition: Stable TIME SPENT: More than 35 minutes. Plan and coordination of the patient's care discussed in the presence of nurse. NILSON
--- NOTE | 2022-10-22 16:08 | ECHO2D ---
Date of Exam: 10/19/2022 Ordering Physician: DR. ZITA WORLEY Room #: 110 Reason for Echo: SOB, CHF, HTN M-Mode Normal Adult Results LV Dimensions Normal Adult Results AoV Opening excursions >1.6 1.7 LVEDD-base- 3.5-5.8 4.3 Ao root dimensions 2.0-3.7 3.0 LVESD-base- 3.1-4.6 L. Atrium dimensions 1.9-3.8 5.4 Post. Wall thickness 0.8-1.1 1.3 IV septum (thickness) 0.7-1.2 1.3 Post. Wall excursion 0.72-1.3 NORMAL Septal motion NORMAL Systolic motion R. Ventricular cavity 1.5-2.0 NORMAL LVEF 60% 67% Paradoxical septal wall motion NORMAL 2-D : ENLARGED LEFT ATRIAL CAVITY, CALCIFIC AORTIC VALVE LEAFLETS, MITRAL VALVE ANNULUS CALCIFICATION, NO EFFUSION, NO THROMBUS, BIATRIAL CAVITY ENLARGEMENT, LEFT VENTRICLE SIZE NORMAL, LEFT VENTRICLE CONTRACTILITY NORMAL M-MODE: MV: CALCIFIC MITRAL VALVE ANNULUS AV: CALCIFIC LEAFLETS TV: NORMAL PV: NORMAL CHAMBER SIZE: BIATRIAL ENLARGEMENT WALL MOTION: NORMAL PERICARDIUM: NORMAL INTERPRETATION: 1. LEFT VENTRICLE HYPERTROPHY 2. BIATRIAL CAVITY ENLARGEMENT 3. MITRAL VALVE ANNULUS CALCIFICATION 4. AORTIC LEAFLETS CALCIFIED 5. NORMAL LEFT VENTRICLE SIZE AND LEFT VENTRICLE CONTRACTILITY MTDD
--- NOTE | 2022-10-22 16:16 | DS ---
DATE OF SERVICE: 10/21/22 FINAL DIAGNOSIS: 1. CHF WITH FLUID RETENTION WITH DEPENDENT LEG EDEMA 2. ACUTE BRONCHITIS WITH CHRONIC LUNG DISEASE 3. DEMENTIA 4. SEVERE HYPERTENSION 5. HYPOTHYROIDISM 6. DYSLIPIDEMIA 7. HISTORY OF SICK SINUS SYNDROME 8. HISTORY OF PAROXYSMAL ATRIAL FIBRILLATION DISCHARGE INSTRUCTIONS: Followup appointment in 5-7 days. MEDICATIONS AT DISCHARGE: Minoxidil 5 mg PO BID Famotidine 20 mg PO BID Pravastatin 80 mg PO daily Apixaban 5 mg PO BID Levothyroxine 100 mcg Memantine 10 mg Nifedipine 60 mg Losartan 50 mg PO BID Lexapro Lorazepam 1 mg Q day PRN Donepezil 10 mg PO daily Lasix 20 PO daily K-tab 20 mEq PO daily Carvedilol 3.125 mg PO twice a day LABS: Hemoglobin 11, hematocrit 38, WBC 11,000, normal differential, creatinine 0.7, BUN 26, potassium 3.6, glucose 108 Patient's initial proBNP was 7,150. Patient's proBNP was drawn on the day of discharge out patient and had an ABG done on room air before discharge. Patient is to be evaluated for oxygen need. DIET INSTRUCTIONS: Cut down on salt intake. DISEASE SPECIFIC EDUCATION: CHF education carried out. HOSPITAL COURSE: 87 year old white female hospitalized with some fluid retention and questionable CHF. Evaluated proBNP for multiple reasons, in any case, patient has +2 pitting edema and also had acute bronchitis with chronic lung disease. During hospitalization patient was given Zithromax 500 Q daily for three times along with steroids and IV Lasix for a few days. At the time of discharge she was put on Lasix and Potassium for leg edema. Likely leg edema is from dependent leg edema. Echocardiogram showed normal LV contractility and enlarged LA cavity. Patient felt a lot better. Her appetite improved. She had no CHF symptoms and no bronchitis symptoms at the time of discharge. Patient was also given Carvedilol for controlling her heart rate. She has a history of bradyarrhythmias; will monitor that as an out patient. Patient was seen by Dr. Royal and at that time he recommended pacemaker placement which she had declined. SPECIFIC ORDERS: Elevate the legs and cut down on salt intake. Condition at time of discharge: Stable Code Status: DNR TIME SPENT: 70 minutes MTDD
--- NOTE | 2022-10-22 16:39 | PN ---
10/18/22 LEVEL 5 10/19/22 INTERMEDIATE 10/20/22 INTERMEDIATE 10/21/22 DISCHARGE MTDD
== END 2022-10-21 14:25 | disposition short-term general hospital (02) | DRG 292 ==
LOC: ED 11:58 → MEDSURG A 13:47
PROVIDERS: ADMIT Internal Medicine; ATTEND Internal Medicine
DX: R22.43 Localized swelling, mass and lump, lower limb, bilateral; I11.0 Hypertensive heart disease with heart failure; F02.80 Dementia in other diseases classified elsewhere, unspecified severity, without behavioral disturbance, psychotic disturbance, mood disturbance, and anxiety; I48.91 Unspecified atrial fibrillation; R00.2 Palpitations; Z87.09 Personal history of other diseases of the respiratory system; E78.5 Hyperlipidemia, unspecified; Z53.20 Procedure and treatment not carried out because of patient's decision for unspecified reasons; R09.02 Hypoxemia; R06.02 Shortness of breath; E88.81 Metabolic syndrome and other insulin resistance; Z20.822 Contact with and (suspected) exposure to COVID-19; I50.9 Heart failure, unspecified; I49.5 Sick sinus syndrome; R09.89 Other specified symptoms and signs involving the circulatory and respiratory systems; E87.70 Fluid overload, unspecified; E03.9 Hypothyroidism, unspecified; Z87.2 Personal history of diseases of the skin and subcutaneous tissue; Z66 Do not resuscitate; D64.9 Anemia, unspecified; Z79.899 Other long term (current) drug therapy; H90.3 Sensorineural hearing loss, bilateral; Z86.16 Personal history of COVID-19; G30.9 Alzheimer's disease, unspecified; J44.0 Chronic obstructive pulmonary disease with (acute) lower respiratory infection; R73.9 Hyperglycemia, unspecified; I65.29 Occlusion and stenosis of unspecified carotid artery; Z87.19 Personal history of other diseases of the digestive system; R63.5 Abnormal weight gain; Z90.710 Acquired absence of both cervix and uterus; Z98.51 Tubal ligation status; R01.1 Cardiac murmur, unspecified; Z51.81 Encounter for therapeutic drug level monitoring; Z98.890 Other specified postprocedural states; Z87.891 Personal history of nicotine dependence